=== PATIENT | male | born 1960 | race African-American/Black ===

== ENCOUNTER 2017-07-17 12:19 | Emergency (ER) | payer SELFPAY ==
[2017-07-17] MEDS ORDERED: IV NORMAL SALINE 1000ML BAG 1,000 ML IV ONE (13:30)
[2017-07-17 13:34] LABS: BASO # 0.1 x10^3/uL (0.0-0.2); BASO % 1 % (0-3); EOS % 0 % (0-3); HEMATOCRIT 42.2 % (39.0-53.0); HEMOGLOBIN 14.3 g/dL (13.0-17.5); LYMPH # 2.6 x10^3/uL (1.0-4.8); LYMPH % 32 % (24-48); MEAN CORPUSCULAR HEMOGLOBIN 29 pg (25-35); MEAN CORPUSCULAR HGB CONC 34 g/dL (31-37); MEAN CORPUSCULAR VOLUME 85 fL (79-100); MONO % 7 % (0-9); NEUT % 61 % (31-73); PLATELET COUNT 138 x10^3/uL (140-400); RED BLOOD COUNT 4.99 x10^6/uL (4.30-5.70); RED CELL DISTRIBUTION WIDTH 13.3 % (11.5-14.5); WHITE BLOOD COUNT 8.2 x10^3/uL (4.0-11.0)
--- NOTE | 2017-07-17 13:42 | EKG ---
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
[2017-07-17 13:44] LABS: PROTHROMBIN TIME PATIENT 12.4 SEC (11.7-14.0)
[2017-07-17 13:47] LABS: CALCIUM 9.9 mg/dL (8.5-10.1); CREATININE 1.2 mg/dL (0.7-1.3); GFR 75.8; POTASSIUM 4.1 mmol/L (3.5-5.1)
--- NOTE | 2017-07-17 13:49 | RAD ---
Head CT without contrast History:Weakness, headache, left leg numbness today Technique: Noncontrast CT imaging was acquired of the head. RS Compliance Statement: One or more of the following individualized dose reduction techniques were utilized for this examination: 1. Automated exposure control 2. Adjustment of the mA and/or kV according to patient size 3. Use of iterative reconstruction technique Comparison: None Findings: The ventricles, sulci, and cisterns are within normal limits in size and configuration. There is no significant mass-effect, midline shift, or abnormal extra-axial fluid collection. There is no evidence of acute parenchymal or extraaxial hemorrhage. Mastoid air cells are aerated. There is near complete opacification visualized right maxillary sinus and to moderate to severe left maxillary sinus mucosal thickening. There is also patchy ethmoid air cell mucosal thickening greater on the right. No significant osseous abnormality is identified. Impression: 1. There is no evidence of an acute intracranial abnormality. 2. There is significant paranasal sinus mucosal thickening as stated.
[2017-07-17 14:00] LABS: ALBUMIN 3.5 g/dL (3.4-5.0); ALBUMIN/GLOBULIN RATIO 0.8 (1.0-1.7); TOTAL BILIRUBIN 0.3 mg/dL (0.2-1.0); TOTAL PROTEIN 7.9 g/dL (6.4-8.2)
--- NOTE | 2017-07-17 14:20 | RAD ---
LUMBAR SPINE 2-3V History:pain, pain into the left leg Comparison: None Findings:3 views lumbar spine are submitted. Lumbar vertebral body stature and AP alignment are maintained. No acute fracture is identified by radiographs. Intervertebral disc spaces are adequate. There is atherosclerotic calcification of the abdominal aorta. Impression: 1.No acute abnormality is identified.
--- NOTE | 2017-07-17 14:22 | RAD ---
HAND RIGHT 3V History:Pain and swelling Comparison: None Findings:3 views of the right hand are submitted. There is a reflection of the fifth distal interphalangeal joint. No acute fracture or dislocation is identified. There is probable cyst of the lunate. There is some degenerative change such as of the fourth distal interphalangeal joint. Some deformity of the third metacarpal may be due to sequela of old trauma. Impression: 1.No acute osseous abnormality is identified.
--- NOTE | 2017-07-17 14:23 | RAD ---
Single view chest History:pain, shortness of breath today An AP view of the chest is submitted. Comparison: 05/25/2010. Findings: There is no significant infiltrate, pleural effusion, or pneumothorax. The pericardial cardiac silhouette is within normal limits in size. Impression: There is no evidence of acute cardiopulmonary disease.
[2017-07-17 14:28] LABS: BILIRUBIN,URINE NEGATIVE (NEG); GLUCOSE,URINE >=1000 mg/dL (NEG); NITRITE,URINE NEGATIVE (NEG); PROTEIN,URINE NEGATIVE (NEG-TRACE); UROBILINOGEN,URINE 0.2 mg/dL (0.2 mg/dL)
[2017-07-17 14:36] LABS: BACTERIA,URINE 0 /HPF (0-FEW); RBC,URINE 0 /HPF (0-2); WBC,URINE 0 /HPF (0-4)
--- NOTE | 2017-07-17 14:50 | PHYS DOC ---
Past Medical History Past Medical History: CAD, Diabetes-Type I, Hypertension Past Surgical History: No Surgical History Additional Information: ceased smoking 1 month ago Alcohol Use: None Drug Use: None Adult General Chief Complaint Chief Complaint: WEAKNESS/GENERALIZED HPI HPI Patient is a 57 year old male who presents with left leg weakness. The patient reports 2 month history of intermittent left leg pain associated with lower back pain. He reports symptoms have been more severe this week so he decided to come for evaluation. He does report some left leg weakness & has been using a cane which is unusual for him. He denies facial droop, slurred speech, upper extremity numbness/weakness. Denies any recent injury or falls. Denies fevers/chills, abdominal pain, dysuria/hematuria, saddle anesthesia, bowel/bladder incontinence/retention. No previous back surgeries. Also complains of right hand pain, previous metacarpal fracture but no recent injuries. History of diabetes & hypertension, no history of CVA or CAD. PCP is at [facility]. Review of Systems Review of Systems Constitutional: Denies fever or chills Eyes: Denies change in visual acuity HENT: Denies nasal congestion or sore throat Respiratory: Denies cough or shortness of breath Cardiovascular: Denies chest pain or edema GI: Denies abdominal pain, nausea, vomiting, or diarrhea : Denies dysuria or hematuria Musculoskeletal: Reports back pain, lower extremity pain, hand pain Integument: Denies rash or skin lesions Neurologic: Denies headache, focal weakness or sensory changes All other systems were reviewed and found to be within normal limits, except as documented in this note. Current Medications Current Medications Current Medications Medications (Trade) Dose Ordered Sig/Juan Carlos Start Time Stop Time Status Last Admin Dose Admin Sodium Chloride 1,000 ml @ 1,000 mls/hr 1X ONCE 07/17/17 13:30 07/17/17 14:29 DC 07/17/17 13:30 1,000 MLS/HR Allergies Allergies Allergies Coded Allergies Type Severity Reaction Last Updated Verified No Known Drug Allergies 07/17/17 No Physical Exam Physical Exam Constitutional: Well developed, well nourished, no acute distress, non-toxic appearance. HENT: Normocephalic, atraumatic, bilateral external ears normal, oropharynx moist, nose normal. Eyes: PERRLA, EOMI, conjunctiva normal, no discharge. Neck: supple, no stridor. Cardiovascular: RRR, no murmurs, no edema. Lungs & Thorax: LCTAB, no wheezing, no respiratory distress. Abdomen: soft, nontender, nondistended. Skin: Warm, dry, no erythema, no rash. Back: lower lumbar tenderness without step offs, otherwise no spinal tenderness , no CVA tenderness. Extremities: no focal bony tenderness of left lower extremity, no calf tenderness or swelling, distal pulses palpable bilaterally. Neurologic: Alert and oriented X 3, cranial nerves 2-12 grossly intact, essentially symmetric strength & sensation to upper & lower extremities, possibly very slightly weak with plantarflexion/dorsiflexion on the left as compared to right, normal sensation bilaterally. ambulates with steady gait. Psychologic: Affect normal, judgement normal, mood normal. Current Patient Data Vital Signs Vital Signs Date Time Temp Pulse Resp B/P (MAP) Pulse Ox O2 Delivery O2 Flow Rate FiO2 07/17/17 15:00 74 16 98 07/17/17 13:04 98.5 170/88 (115) Room Air 98.5 Lab Values Laboratory Tests Test 07/17/17 12:49 07/17/17 12:54 07/17/17 13:10 07/17/17 14:00 Glucose (Fingerstick) 364 mg/dL (70-99) H POC Troponin I 0.00 ng/ml (<0.08) White Blood Count 8.2 x10^3/uL (4.0-11.0) Red Blood Count 4.99 x10^6/uL (4.30-5.70) Hemoglobin 14.3 g/dL (13.0-17.5) Hematocrit 42.2 % (39.0-53.0) Mean Corpuscular Volume 85 fL (79-100) Mean Corpuscular Hemoglobin 29 pg (25-35) Mean Corpuscular Hemoglobin Concent 34 g/dL (31-37) Red Cell Distribution Width 13.3 % (11.5-14.5) Platelet Count 138 x10^3/uL (140-400) L Neutrophils (%) (Auto) 61 % (31-73) Lymphocytes (%) (Auto) 32 % (24-48) Monocytes (%) (Auto) 7 % (0-9) Eosinophils (%) (Auto) 0 % (0-3) Basophils (%) (Auto) 1 % (0-3) Neutrophils # (Auto) 5.0 x10^3uL (1.8-7.7) Lymphocytes # (Auto) 2.6 x10^3/uL (1.0-4.8) Monocytes # (Auto) 0.6 x10^3/uL (0.0-1.1) Eosinophils # (Auto) 0.0 x10^3/uL (0.0-0.7) Basophils # (Auto) 0.1 x10^3/uL (0.0-0.2) Prothrombin Time 12.4 SEC (11.7-14.0) Prothrombin Time INR 1.0 (0.8-1.1) PTT 31 SEC (24-38) Sodium Level 140 mmol/L (136-145) Potassium Level 4.1 mmol/L (3.5-5.1) Chloride Level 101 mmol/L (98-107) Carbon Dioxide Level 31 mmol/L (21-32) Anion Gap 8 (6-14) Blood Urea Nitrogen 19 mg/dL (8-26) Creatinine 1.2 mg/dL (0.7-1.3) Estimated GFR (Cockcroft-Gault) 75.8 BUN/Creatinine Ratio 16 (6-20) Glucose Level 352 mg/dL (70-99) H Calcium Level 9.9 mg/dL (8.5-10.1) Magnesium Level 2.0 mg/dL (1.8-2.4) Total Bilirubin 0.3 mg/dL (0.2-1.0) Aspartate Amino Transferase (AST) 16 U/L (15-37) Alanine Aminotransferase (ALT) 28 U/L (16-63) Alkaline Phosphatase 108 U/L (46-116) Troponin I Quantitative < 0.017 ng/mL (0.000-0.055) Total Protein 7.9 g/dL (6.4-8.2) Albumin 3.5 g/dL (3.4-5.0) Albumin/Globulin Ratio 0.8 (1.0-1.7) L Urine Collection Type Unknown Urine Color Colorless Urine Clarity Clear Urine pH 5.0 Urine Specific [place] >=1.030 Urine Protein Negative mg/dL (NEG-TRACE) Urine Glucose (UA) >=1000 mg/dL (NEG) Urine Ketones (Stick) Negative mg/dL (NEG) Urine Blood Negative (NEG) Urine Nitrite Negative (NEG) Urine Bilirubin Negative (NEG) Urine Urobilinogen Dipstick 0.2 mg/dL (0.2 mg/dL) Urine Leukocyte Esterase Negative (NEG) Urine RBC 0 /HPF (0-2) Urine WBC 0 /HPF (0-4) Urine Bacteria 0 /HPF (0-FEW) Urine Mucus Slight /LPF Test 07/17/17 15:06 Glucose (Fingerstick) 274 mg/dL (70-99) H Laboratory Tests 07/17/17 13:10 Laboratory Tests 07/17/17 13:10 EKG EKG interpreted by me: NSR rate 75, no acute ST/T wave changes, normal intervals, no ectopy.[] Radiology/Procedures Radiology/Procedures PROCEDURE: LUMBAR SPINE 2-3V LUMBAR SPINE 2-3V History:pain, pain into the left leg Comparison: None Findings:3 views lumbar spine are submitted. Lumbar vertebral body stature and AP alignment are maintained. No acute fracture is identified by radiographs. Intervertebral disc spaces are adequate. There is atherosclerotic calcification of the abdominal aorta. Impression: 1.No acute abnormality is identified. DICTATED and SIGNED BY: TAVARES MOSELEY MD DATE: 07/17/17 4597 PROCEDURE: CT HEAD WO CONTRAST Head CT without contrast History:Weakness, headache, left leg numbness today Technique: Noncontrast CT imaging was acquired of the head. RS Compliance Statement: One or more of the following individualized dose reduction techniques were utilized for this examination: 1. Automated exposure control 2. Adjustment of the mA and/or kV according to patient size 3. Use of iterative reconstruction technique Comparison: None Findings: The ventricles, sulci, and cisterns are within normal limits in size and configuration. There is no significant mass-effect, midline shift, or abnormal extra-axial fluid collection. There is no evidence of acute parenchymal or extraaxial hemorrhage. Mastoid air cells are aerated. There is near complete opacification visualized right maxillary sinus and to moderate to severe left maxillary sinus mucosal thickening. There is also patchy ethmoid air cell mucosal thickening greater on the right. No significant osseous abnormality is identified. Impression: 1. There is no evidence of an acute intracranial abnormality. 2. There is significant paranasal sinus mucosal thickening as stated. DICTATED and SIGNED BY: TAVARES MOSELEY MD DATE: 07/17/17 1343 PROCEDURE: HAND RIGHT 3V HAND RIGHT 3V History:Pain and swelling Comparison: None Findings:3 views of the right hand are submitted. There is a reflection of the fifth distal interphalangeal joint. No acute fracture or dislocation is identified. There is probable cyst of the lunate. There is some degenerative change such as of the fourth distal interphalangeal joint. Some deformity of the third metacarpal may be due to sequela of old trauma. Impression: 1.No acute osseous abnormality is identified. DICTATED and SIGNED BY: TAVARES MOSELEY MD DATE: 07/17/17 1416 PROCEDURE: CHEST AP ONLY Single view chest History:pain, shortness of breath today An AP view of the chest is submitted. Comparison: 05/25/2010. Findings: There is no significant infiltrate, pleural effusion, or pneumothorax. The pericardial cardiac silhouette is within normal limits in size. Impression: There is no evidence of acute cardiopulmonary disease. DICTATED and SIGNED BY: TAVARES MOSELEY MD DATE: 07/17/17 1418 [] Course & Med Decision Making Course & Med Decision Making Pertinent Labs and Imaging studies reviewed. (See chart for details) The patient presents with acute exacerbation of chronic back pain. He is a poor historian, symptoms seem most consistent with back pain with sciatica but his description of symptoms is a vague. Obtained CT of his head, x-ray of lumbar spine, and labs. He was found to have hyperglycemia but otherwise no serious abnormality to explain his symptoms. Recommend rest with gentle stretching exercises, application of heating pad, ibuprofen, Flexeril. Patient aware that blood glucose is elevated today, encouraged to take insulin as prescribed. He did miss his morning dose today. Follow-up with primary care physician within 2- 3 days. Return to the emergency department for symptoms of cauda equina syndrome , focal neurologic deficit, any otherwise worsening condition. Discharged home in stable condition. [] Dragon Disclaimer Dragon Disclaimer This electronic medical record was generated, in whole or in part, using a voice recognition dictation system. Departure Departure Impression: Primary Impression: Sciatica Additional Impression: Hyperglycemia Disposition: 01 HOME, SELF-CARE Condition: STABLE Referrals: NO PCP (PCP) CONOR CHIN MD Patient Instructions: Hyperglycemia, [id number], Sciatica, [id number] Additional Instructions: You were seen in the emergency department today for back pain & leg pain. Your tests here showed high blood sugar but otherwise no serious abnormality. This is likely lower back pain with sciatic nerve pain. Please rest but do gentle stretching exercises, apply heating pad, take ibuprofen if you are able, use flexeril for muscle spasm. Follow up with a primary care doctor such as Dr. Chin if not improving in 2-3 days. Come back for arm or leg numbness or weakness, loss of control of bowels or bladder, numbness in groin, slurred speech, droopy face, any otherwise worsening condition. Scripts Cyclobenzaprine Hcl (CYCLOBENZAPRINE HCL) 5 Mg Tablet 1 TAB PO TID Y for MUSCLE SPASMS, #10 TAB Prov: ANNELISE CHADWICK MD 07/17/17 Problem Qualifiers ANNELISE CHADWICK MD Jul 17, 2017 14:50
[2017-07-17 15:00] VITALS: BP 200/74
[2017-07-17] MEDS ORDERED: CYCL5TAB PO (15:08)
== END 2017-07-17 15:20 | disposition home or self-care (01) ==
LOC: ER 12:19
DX: E10.65 Type 1 diabetes mellitus with hyperglycemia (principal); G89.29 Other chronic pain; M54.42 Lumbago with sciatica, left side; I10 Essential (primary) hypertension; I25.10 Atherosclerotic heart disease of native coronary artery without angina pectoris; F17.200 Nicotine dependence, unspecified, uncomplicated
CPT/HCPCS: 36415; 70450; 71010; 72100; 73130; 80053; 81001; 82962; 83735; 84484; 85025; 85610; 85730; 93005; 96360; 99285; J7030

== ENCOUNTER 2017-09-21 09:45 | Emergency (ER) | payer SELFPAY, OTHER ==
[2017-09-21] MEDS: HYDROcodone/APAP 5/325MG 1 TAB TABLET PO ×2 (10:40)
== END 2017-09-21 11:45 | disposition home or self-care (01) ==
LOC: ER 11:45
DX: S30.0XXA Contusion of lower back and pelvis, initial encounter (principal); S20.222A Contusion of left back wall of thorax, initial encounter; S20.221A Contusion of right back wall of thorax, initial encounter; I25.10 Atherosclerotic heart disease of native coronary artery without angina pectoris; E11.9 Type 2 diabetes mellitus without complications; I10 Essential (primary) hypertension; W01.190A Fall on same level from slipping, tripping and stumbling with subsequent striking against furniture, initial encounter; Y93.G3 Activity, cooking and baking; Y92.89 Other specified places as the place of occurrence of the external cause; Y99.8 Other external cause status
CPT/HCPCS: 72072; 72100; 99284

== ENCOUNTER → 2017-09-21 | Outpatient (CLI) | payer OTHER ==
[2017-09-21] MEDS: ALBUTEROL SULFATE 2.5 MG/3 ML NEBU. NEB ×2 (08:55)
== END | disposition home or self-care (01) ==
LOC: PF 08:11
DX: M48.02 Spinal stenosis, cervical region (principal); I65.22 Occlusion and stenosis of left carotid artery
CPT/HCPCS: 72040; 94060; 94640; J7613

== ENCOUNTER 2018-04-07 05:08 | Emergency (ER) | payer SELFPAY ==
[~2018-04-07] VITALS: Ht 172.7 cm; Wt 78.9 kg
[~2018-04-07 05:08] MED LIST: CYCL5TAB PO
--- NOTE | 2018-04-07 05:38 | PHYS DOC ---
Past Medical History Past Medical History: CAD, Diabetes-Type II, Hypertension Past Surgical History: No Surgical History Alcohol Use: None Drug Use: None Adult General Chief Complaint Chief Complaint: EARACHE/EAR PAIN HPI HPI Patient is a pleasant 57 old male who presents to the emergency department for evaluation. He states that for the past 2-3 days, he has had some general left-sided neck and facial pain. He states he feels that the pain is in his ear, he has been taking ibuprofen which helps his pain, when the ibuprofen wears off his pain returns. He has not had any hearing changes. He has not had any definite vision changes, or any pain with ocular movement. He states swallowing does seem to worsen his pain but he is not having any sore throat. He has not had any fevers or chills. He denies any numbness or weakness. He denies any headache. Other than the stated above, there are no alleviating or exacerbating factors to his symptoms. Review of Systems Review of Systems Constitutional: Denies fever or chills [] Eyes: Denies change in visual acuity, redness, or eye pain [] HENT: Denies nasal congestion or sore throat [] Respiratory: Denies shortness of breath. He has had a nonproductive cough but he is a smoker. [] Cardiovascular: The patient denies any shortness of breath, chest pain, palpitations, or orthopnea [] GI: Denies abdominal pain, nausea, vomiting, bloody stools or diarrhea [] : Denies dysuria or hematuria [] Musculoskeletal: Denies back pain or joint pain [] Integument: Denies rash or skin lesions [] Neurologic: Denies headache, focal weakness or sensory changes [] Endocrine: Denies polyuria or polydipsia [] All other systems were reviewed and found to be within normal limits, except as documented in this note. Allergies Allergies Allergies Coded Allergies Type Severity Reaction Last Updated Verified No Known Drug Allergies 07/17/17 No Physical Exam Physical Exam PHYSICAL EXAM: CONSTITUTIONAL: Well developed, well nourished HEAD: normocephalic, atraumatic EENT: PERRL, EOMI. Conjunctivae normal color, sclerae non-icteric; moist mucous membranes. The tympanic membranes are normal bilaterally. Specifically left external auditory canal is normal, the tympanic membrane is normal. There is no tragus tenderness. There is no reproducible facial tenderness to palpation. The mastoid is nontender. NECK: Supple, no meningismus. There is mild tenderness to palpation along the anterior/lateral left neck soft tissues, along the course of the vasculature. There is a soft carotid bruit present on the left. LUNGS: Scattered rhonchi, mild,, breathing even and unlabored. Normal air movement. HEART: Regular rate and rhythm, no murmur CHEST: No deformity; non-tender ABDOMEN: The abdomen is soft, and non-tender, no masses or bruits. EXTREM: Normal ROM; no deformity, no calf tenderness. Normal pulses palpable in all extremities. There is no pedal edema. SKIN: No rash; no diaphoresis NEURO: Alert; normal speech and cognition; CN's grossly intact; strength grossly intact without focal deficit. BACK: No CVA TTP. EKG EKG [Normal sinus rhythm at a rate of 68 bpm, normal axis, normal intervals, nonspecific ST/T changes.] Radiology/Procedures Radiology/Procedures [] Course & Med Decision Making Course & Med Decision Making Pertinent Labs and Imaging studies reviewed. (See chart for details) [6:00 AM: Care will be turned over to Dr. Ellsworth at shift change, ending labs, imaging, and final disposition. Report given.] Dragon Disclaimer Dragon Disclaimer This electronic medical record was generated, in whole or in part, using a voice recognition dictation system. Departure Departure Impression: Primary Impression: Neck pain Referrals: UNKNOWN PCP NAME (PCP) ARIEL WELDON MD Apr 07, 2018 05:38
[2018-04-07 06:03] LABS: BASO # 0.1 x10^3/uL (0.0-0.2); BASO % 2 % (0-3); EOS % 1 % (0-3); HEMATOCRIT 40.3 % (39.0-53.0); HEMOGLOBIN 13.6 g/dL (13.0-17.5); LYMPH % 41 % (24-48); MEAN CORPUSCULAR HEMOGLOBIN 29 pg (25-35); MEAN CORPUSCULAR HGB CONC 34 g/dL (31-37); MEAN CORPUSCULAR VOLUME 84 fL (79-100); MONO # 0.4 x10^3/uL (0.0-1.1); MONO % 6 % (0-9); NEUT # 3.6 x10^3uL (1.8-7.7); NEUT % 51 % (31-73); PLATELET COUNT 159 x10^3/uL (140-400); RED BLOOD COUNT 4.78 x10^6/uL (4.30-5.70); RED CELL DISTRIBUTION WIDTH 14.1 % (11.5-14.5); WHITE BLOOD COUNT 7.2 x10^3/uL (4.0-11.0)
[2018-04-07 06:15] LABS: CALCIUM 8.8 mg/dL (8.5-10.1); GFR 93.5; POTASSIUM 3.2 mmol/L (3.5-5.1)
[2018-04-07 06:21] LABS: ALBUMIN 3.7 g/dL (3.4-5.0); ALBUMIN/GLOBULIN RATIO 1.1 (1.0-1.7); C-REACTIVE PROTEIN 13.8 mg/L (0-3.3); TOTAL BILIRUBIN 0.2 mg/dL (0.2-1.0); TOTAL PROTEIN 7.1 g/dL (6.4-8.2)
--- NOTE | 2018-04-07 06:22 | EKG ---
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
[2018-04-07] MEDS ORDERED: IOHEXOL 300 MG/ML 100ML VIAL. IV ONE (07:15)
[2018-04-07] MEDS ORDERED: CONTRAST GIVEN. MC PRN (07:15)
[2018-04-07] MEDS ORDERED: POTASSIUM CHLORIDE 20 MEQ/15 ML ORAL LIQUID. PO ONE (07:45)
[2018-04-07 08:05] VITALS: BP 156/73
--- NOTE | 2018-04-07 08:21 | RAD ---
CLINICAL HISTORY: left side neck pain, possible carotid injury COMPARISON: None available. TECHNIQUE: 1.0mm contiguous cuts after the administration of Omnipaque 300 75ml intravenous contrast material for CT angiography. Multiplanar reconstructed images were obtained including 3D reconstructed images performed on an independent work station. Stenosis if present in the carotid arteries were measured using NASCET criteria. FINDINGS: CTA of the intracranial circulation reveals normal appearing distal internal carotid arteries including the distal cervical, petrous, cavernous and supraclinoid portions. The anterior cerebral arteries are well visualized and without evidence of stenosis or occlusion. The middle cerebral arteries are well visualized and without evidence of stenosis or occlusion. The posterior cerebral arteries are well visualized and without evidence of stenosis or occlusion. The left posterior communicating artery is not visualized. The right posterior commuting artery is unremarkable. The vertebral basilar system is normal with no evidence of stenosis or occlusion. In the neck, the origins of the great vessels are unremarkable. Bovine configuration of the aortic arch. The common carotid arteries, bilaterally are normal with no evidence of significant stenosis or occlusion. The internal carotid arteries are normal bilaterally with no evidence of stenosis. The vertebral arteries in the neck are well visualized bilaterally and unremarkable. Emphysematous changes of the lung apices are seen. IMPRESSION: Essentially normal CT angiogram of the neck. Electronically signed by: Triston White MD (04/07/2018 8:17 AM) [facility]
[2018-04-07] MEDS ORDERED: GABA-585 PO (08:47)
--- NOTE | 2018-04-07 10:04 | RAD ---
EXAM: PA and lateral views of the chest DATE: 04/07/2018 5:32 AM INDICATION: cough COMPARISON: 07/17/2017 FINDINGS: The heart is not enlarged. Mediastinal and hilar contours are normal. No focal parenchymal airspace opacity. No pleural effusion or pneumothorax. IMPRESSION: 1. No radiographic evidence for acute cardiopulmonary process. Electronically signed by: Triston White MD (04/07/2018 10:00 AM) [facility]
== END 2018-04-07 08:55 | disposition home or self-care (01) ==
LOC: ER 05:08
DX: M54.2 Cervicalgia (principal); R51 Headache; H92.02 Otalgia, left ear; R05 Cough; F17.200 Nicotine dependence, unspecified, uncomplicated; E11.9 Type 2 diabetes mellitus without complications; I10 Essential (primary) hypertension; I25.10 Atherosclerotic heart disease of native coronary artery without angina pectoris
CPT/HCPCS: 36415; 70498; 71046; 80053; 84484; 85025; 85651; 86140; 93005; 99285; Q9967

== ENCOUNTER → 2019-06-04 | Outpatient (CLI) | payer OTHER ==
[~2019-06-04] MED LIST changes: +AMLO10TA8 PO; +ATOR40TA59 PO; +CHOL10003 PO; +GABA-585 PO; +HYDR-2761 PO; +INSU100I13 SQ; +INSU100V31 SQ; +LISI-130 PO
[2019-06-04 12:27] LABS: BILIRUBIN,URINE NEGATIVE (NEG); CLARITY,URINE CLEAR; COLOR,URINE YELLOW; NITRITE,URINE NEGATIVE (NEG); PH,URINE 5.5; PROTEIN,URINE 30 mg/dL (NEG-TRACE); UROBILINOGEN,URINE 0.2 mg/dL (0.2 mg/dL)
--- NOTE | 2019-06-04 12:40 | EKG ---
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 POOR R WAVE PROGRESSION NO SIGNIFICANT CHANGES FROM PREVIOUS EKG Electronically Signed On 06-05-2019 15:35:01 CDT by Weston Joy
[2019-06-04 12:47] LABS: BACTERIA,URINE 0 /HPF (0-FEW); RBC,URINE 0 /HPF (0-2); SQUAMOUS EPITHELIAL CELL,UR FEW /LPF; WBC,URINE 0 /HPF (0-4)
== END | disposition home or self-care (01) ==
LOC: SURGPAT 13:10
PROVIDERS: ATTEND Orthopaedic Surgery
DX: Z01.818 Encounter for other preprocedural examination (principal); M16.11 Unilateral primary osteoarthritis, right hip; I10 Essential (primary) hypertension
CPT/HCPCS: 36415; 81001; 85610; 85651; 85730; 87641; 93005

== ENCOUNTER 2019-06-19 08:07 | Inpatient (IN) | payer OTHER ==
[~2019-06-19] VITALS: Ht 172.7 cm; Wt 86.2 kg
[2019-06-19] VITALS (9 sets, daily range): BP systolic 127–167; BP diastolic 66–84
[~2019-06-19 08:07] MED LIST changes: +ACETAMINOPHEN 500 MG TABLET PO PRN; +IV RINGERS,LACTATED 1000ML 1,000 ML IV SCH; +LIDOCAINE 1% PF 2 ML VIAL. ID PRN; +MELOXICAM 7.5 MG TABLET PO PRN; +MORPHINE SULFATE 2 MG/ML VIAL. IV PRN; +MORPHINE SULFATE 5 MG, KETOROLAC 30MG VIAL 30 MG, ROPIVacaine 0.5% PF 60 ML, EPINEPHrin... INT ART ONE; +ONDANSETRON PF 4 MG/2 ML VIAL. IV PRN; +PROCHLORPERAZINE 10 MG/2 ML VIAL. IV PRN; +TRANEXAMIC ACID 1,000 MG in IV NS 50ML -- 1ST BAG INJ ONE; +TRANEXAMIC ACID 1,000 MG in IV NS 50ML -- 2ND BAG INJ ONE; +fentaNYL PF VIAL 100 MCG/2 ML VIAL IV PRN
[2019-06-19] MEDS ORDERED: fentaNYL PF VIAL 100 MCG/2 ML VIAL IV PRN (08:45)
[2019-06-19] MEDS ORDERED: 0.9 % SODIUM CHLORIDE 10 ML DISP.SYRIN. IV PRN (08:45)
[2019-06-19] MEDS ORDERED: ZOLPIDEM 5 MG TABLET. PO PRN (08:45)
[2019-06-19] MEDS ORDERED: diphenhydrAMINE 50 MG/ML VIAL IV PRN (08:45)
[2019-06-19] MEDS ORDERED: DEXTROSE 50% 25 GM / 50ML DISP.SYRIN. IV PRN (08:45)
[2019-06-19] MEDS ORDERED: MORPHINE SULFATE 2 MG/ML VIAL. IV PRN (08:45)
[2019-06-19] MEDS ORDERED: PHENYLEPHRINE in 0.9% NACL PF 1 MG/10 ML SYRINGE. IV ONE (08:52)
[2019-06-19] MEDS ORDERED: DEXAMETHASONE SOD PHOS 4 MG/ML VIAL ONE (08:52)
[2019-06-19] MEDS ORDERED: PROPOFOL 0 ML IV ONE (08:52)
[2019-06-19] MEDS ORDERED: LIDOCAINE 2% PF 5 ML VIAL. ONE (08:52)
[2019-06-19] MEDS ORDERED: fentaNYL PF VIAL 100 MCG/2 ML VIAL ONE ×3 (08:53→11:08)
[2019-06-19] MEDS ORDERED: ROCURONIUM 50 MG/5 ML VIAL. ONE ×2 (08:53→11:07)
[2019-06-19] MEDS ORDERED: MIDAZOLAM HCL/PF 2 MG/2 ML VIAL. ONE (08:53)
[2019-06-19] MEDS ORDERED: KETOROLAC 30 MG/ML VIAL. ONE (08:53)
[2019-06-19] MEDS ORDERED: CHOLECALCIFEROL (VITAMIN D3) 1,000 UNIT TABLET PO SCH (09:00)
[2019-06-19] MEDS ORDERED: amLODIPine BESYLATE 10 MG TABLET PO SCH (09:00)
--- NOTE | 2019-06-19 09:02 | HP ---
ADMIT DATE: 06/19/2019 CHIEF COMPLAINT: Left hip pain. HISTORY OF PRESENT ILLNESS: The patient is a 59-year-old male who has had ongoing severe left hip and groin pain unresponsive to nonoperative management including use of protected weightbearing, an intraarticular injection, and now significantly bothers him with startup and with increased activities, severely affecting his activities of daily living. PAST MEDICAL HISTORY: Significant for diabetes mellitus, hypertension and hyperlipidemia. FAMILY HISTORY: Denies any family history. SOCIAL HISTORY: Denies smoking or drug use. Occasional alcohol use. MEDICATIONS: Include lisinopril, amlodipine, pravastatin, Lantus, NovoLog insulin, and [place] for pain. ALLERGIES: He has no known drug allergies. REVIEW OF SYSTEMS: Denies any current chest pain, shortness of breath, fever, chills, or other constitutional symptoms. Significant for the left hip pain. Denies any neurologic weakness, extremity swelling or other symptoms. PHYSICAL EXAMINATION: VITAL SIGNS: Per admission sheet. HEENT: Atraumatic, normocephalic. HEART: Regular rate and rhythm. LUNGS: Clear to auscultation bilaterally. ABDOMEN: Benign. EXTREMITIES: Examination of the left hip reveals decreased range of motion in all planes with pain on his already decreased range of motion. Leg lengths are equal. Negative straight leg raise sign. Normal examination of the contralateral right hip, bilateral knees and ankles. IMAGING: X-rays of the left hip shows severe degenerative change with joint line narrowing, [id number] degenerative change without collapse. IMPRESSION: Right hip degenerative joint disease. TREATMENT PLAN: I had previously discussed with him in clinic risks, benefits, postoperative course of total hip arthroplasty including the possibility of instability, leg length inequality, premature wear or loosening, fracture, infection, nerve or blood vessel damage, medical or other anesthetic complications among others. He wishes to proceed with surgical evaluation and treatment today, which will include [facility] admission to follow. LYNNE PRITCHARD MD DR: PATRICK/ayesha JOB#: [id number] / [id number]
[2019-06-19] MEDS: INSULIN LISPRO 100 UNIT/ML 3ML VIAL for OP,RR ONLY. SQ PRN ×2 (09:07→12:52)
[2019-06-19 09:11] LABS: PROTHROMBIN TIME PATIENT 12.3 SEC (11.7-14.0)
[2019-06-19] MEDS ORDERED: PROPOFOL 20 ML IV ONE (10:34)
[2019-06-19] MEDS ORDERED: ESMOLOL 100 MG/10 ML VIAL. IVP ONE (11:23)
[2019-06-19] MEDS ORDERED: GLYCOPYRROLATE 1 MG/5 ML VIAL. ONE (11:38)
[2019-06-19] MEDS ORDERED: NEOSTIGMINE METHYLSULFATE 5 MG/5 ML SYRINGE. ONE (11:38)
[2019-06-19] MEDS: ONDANSETRON PF 4 MG/2 ML VIAL. IV SCH ×4 (12:00→23:55)
[2019-06-19] MEDS: ONDANSETRON ODT 4 MG TAB.RAPDIS. PO SCH ×2 (12:00→18:00)
[2019-06-19] MEDS: HYDROmorphone 2 MG/ML VIAL IV PRN ×3 (12:59→13:31)
--- NOTE | 2019-06-19 13:04 | RAD ---
HIP LEFT 2V WITH PELVIS History: Postoperative left hip arthroplasty. Technique: AP view the pelvis and 2 additional views of the left hip. Comparison: February 07, 2019. Findings: Interval left total hip arthroplasty. Expected postoperative changes with subcutaneous gas and surgical drain noted. Normal alignment. No fracture. Lucent lesion within the right femoral head, unchanged. Impression: 1. Interval left total hip arthroplasty. No immediate hardware complications. 2. 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 Electronically signed by: Misael Hernandez DO (06/19/2019 1:01 PM) [facility]
--- NOTE | 2019-06-19 13:35 | NUR ---
Arrived to unit by bed from PACU. Drowsy but awakens. Left hip dressing is intact with LYNN, IAC and Hemovac drain. Able to wiggle toes easily, warm touch and pedal pulses + bilaterally. SCD on bilaterally. IVF's intact and infusing. Oriented to room and controls. Side rails up x's 2 with call light in reach. Sponsor, Bjorn at bedside. Cont. monitor.
[2019-06-19] MEDS ORDERED: WARFARIN 7.5 MG TABLET. PO ONE (16:00)
[2019-06-19] MEDS: INSULIN LISPRO 300 UNITS/3 ML VIAL. SQ SCH ×2 (16:40→17:00)
[2019-06-19] MEDS: KETOROLAC 30MG VIAL 30 MG, BUPIVACAINE MPF 0.25% 20 ML, EPINEPHrine 0.5 MG in TOTAL VOL... INT ART SCH (16:44)
[2019-06-19] MEDS: FERROUS SULFATE 325 MG TABLET. PO SCH (16:58)
--- NOTE | 2019-06-19 19:15 | NUR ---
Elis IV @1800 not given was adm earlier@ [phone]
[2019-06-19] MEDS: IV NORMAL SALINE 1000ML BAG 1,000 ML IV SCH (19:17)
[2019-06-19] MEDS: PROCHLORPERAZINE 5 MG TABLET. PO PRN (19:17)
[2019-06-19] MEDS: oxyCODONE IR 5 MG TABLET PO PRN ×2 (19:25→23:32)
[2019-06-19] MEDS: ATORVASTATIN CALCIUM 40 MG TABLET. PO SCH (20:36)
[2019-06-19] MEDS: amLODIPine BESYLATE 10 MG TABLET PO SCH (20:38)
[2019-06-19] MEDS: INSULIN GLARGINE SYRINGE. SQ SCH (20:40)
[2019-06-19] MEDS: CALCIUM CARBONATE 500 MG TAB.CHEW PO PRN (23:32)
[2019-06-20] VITALS (12 sets, daily range): BP systolic 97–181; BP diastolic 50–84
[2019-06-20] MEDS: PROCHLORPERAZINE 5 MG TABLET. PO PRN (02:12)
[2019-06-20] MEDS: oxyCODONE IR 5 MG TABLET PO PRN ×2 (04:10→08:25)
[2019-06-20 04:38] LABS: HEMATOCRIT 34.5 % (39.0-53.0); HEMOGLOBIN 11.4 g/dL (13.0-17.5)
[2019-06-20 04:49] LABS: PROTHROMBIN TIME PATIENT 12.4 SEC (11.7-14.0)
--- NOTE | 2019-06-20 05:20 | NUR ---
paged answering service Dr Corado aerotriangulation specialist talked to Pay[place] informed that pt need medication for hicup pt having on and off hicup all night long stated will paged
[2019-06-20] MEDS: KETOROLAC 30MG VIAL 30 MG, BUPIVACAINE MPF 0.25% 20 ML, EPINEPHrine 0.5 MG in TOTAL VOL... INT ART SCH (05:30)
[2019-06-20] MEDS: ONDANSETRON PF 4 MG/2 ML VIAL. IV SCH (05:54)
[2019-06-20] MEDS: traMADol 50 MG TABLET PO SCH ×3 (05:55→17:55)
[2019-06-20] MEDS ORDERED: GABAPENTIN 100 MG CAPSULE. PO SCH (06:00)
[2019-06-20] MEDS: ONDANSETRON ODT 4 MG TAB.RAPDIS. PO SCH ×2 (06:00)
[2019-06-20] MEDS ORDERED: MAGNESIUM HYDROXIDE 2,400 MG/30 ML ORAL.SUSP. PO PRN (06:00)
--- NOTE | 2019-06-20 06:21 | NUR ---
Dr Corado returned paged informed of patient situation on having on and off hicups during the night with order to give thorazine 50mg po every 6 hours prn
[2019-06-20] MEDS ORDERED: chlorproMAZINE 25 MG TABLET PO PRN (06:30)
--- NOTE | 2019-06-20 07:33 | NUR ---
Placed on room air approximately 30 minutes, saturation level 88%, returned to oxygen at 2L/nc, eating breakfast at this time will encouragement use of incentive spirometry, deep breathing & coughing
[2019-06-20] MEDS: LISINOPRIL 20 MG TABLET PO SCH (08:24)
[2019-06-20] MEDS: FERROUS SULFATE 325 MG TABLET. PO SCH ×2 (08:25→16:26)
[2019-06-20] MEDS: CHOLECALCIFEROL (VITAMIN D3) 1,000 UNIT TABLET PO SCH (08:25)
[2019-06-20] MEDS: SENNOSIDES/DOCUSATE 8.6/50MG TABLET. PO SCH (08:25)
[2019-06-20] MEDS: ACETAMINOPHEN 500 MG TABLET PO SCH ×3 (08:25→20:45)
[2019-06-20] MEDS: MELOXICAM 7.5 MG TABLET PO SCH (08:25)
[2019-06-20] MEDS: MULTIVITAMIN with MINERAL TABLET. PO SCH (08:25)
[2019-06-20] MEDS: INSULIN LISPRO 300 UNITS/3 ML VIAL. SQ SCH ×6 (08:31→16:32)
[2019-06-20] MEDS: IV NORMAL SALINE 1000ML BAG 1,000 ML IV SCH (08:31)
--- NOTE | 2019-06-20 08:54 | NUR ---
Performed incentive spirometry pulled up to 2000ml, encouraged every hour while awake, 94-95% on room air. Given Thorazine for recurrent hiccups.
--- NOTE | 2019-06-20 10:25 | NUR ---
Pharmacy Warfarin Dosing Note S:Pharmacy consulted to assist with anticoagulation therapy started 06/19/19 with target INR: 1.6 - 2.5 O:ARTURMANDIE is a 59 year old M s/p DANA. LABS: Last INR: 1 Last HGB: 11.4 Last HCT: 34.5 Last PLT: - Last dose of 7.5 mg given on 06/19/19 at 1917 Previous Regimen: NA Vitamin K given: N Drug Interaction Changes: Same Interacting Drug Ongoing Drug Interactions: Atorvastatin, chlorpromazine, meloxicam A:INR of 1 is below desired range. Target range for this patient is: 1.6 - 2.5 P: Warfarin dose: 5 mg Today at 1600 Bridge Therapy: None Next INR due 06/21/19 Pharmacy anticoagulation service will continue to follow. DAKSHA HUTCHINS [facility], 06/20/19 [id number]
--- NOTE | 2019-06-20 11:43 | NUR ---
C/o being dizzy during therapy session, BP 99/64, FSBS 137, cool compress to head, returned back to room, vital signs retaken 114/65, 82, will continue to observe, called for different meal tray, up in bedside chair with feet elevated, ice pack to left hip, call light within reach
[2019-06-20] MEDS ORDERED: ONDANSETRON ODT 4 MG TAB.RAPDIS. PO PRN (12:00)
[2019-06-20] MEDS ORDERED: ONDANSETRON PF 4 MG/2 ML VIAL. IV PRN (12:00)
[2019-06-20] MEDS: CALCIUM CARBONATE 500 MG TAB.CHEW PO PRN (12:11)
[2019-06-20] MEDS: PANTOPRAZOLE 40 MG TABLET.DR. PO SCH (12:42)
--- NOTE | 2019-06-20 14:18 | NUR ---
Another episode of dizziness BP 97/50 HR 78, legs elevated, returned to room, vital signs improved to 112/65-87, taking liquids & voiding well, call light in reach, family friend at bedside, will continue to observe
--- NOTE | 2019-06-20 15:00 | PDOC ---
PROGRESS NOTES Subjective Subjective Problems overnight: Getting around well with physical therapy pain control is adequate Objective Vital Signs Vital Signs Date Time Temp Pulse Resp B/P (MAP) Pulse Ox O2 Delivery O2 Flow Rate FiO2 06/20/19 14:40 85 131/73 (92) 06/20/19 14:18 91 Room Air 06/20/19 07:49 2.0 06/20/19 07:02 99.6 20 99.6 Physical Exam Leg lengths equal distal neurovascular status intact Labs Laboratory Tests Test 06/19/19 08:30 06/19/19 08:48 06/19/19 12:27 06/19/19 16:30 Prothrombin Time 12.3 SEC (11.7-14.0) Prothromb Time International Ratio 0.9 (0.8-1.1) Activated Partial Thromboplast Time 26 SEC (24-38) Glucose (Fingerstick) 163 mg/dL (70-99) 117 mg/dL (70-99) 204 mg/dL (70-99) Test 06/19/19 20:25 06/20/19 04:15 06/20/19 06:59 06/20/19 11:29 Glucose (Fingerstick) 184 mg/dL (70-99) 198 mg/dL (70-99) 137 mg/dL (70-99) Hemoglobin 11.4 g/dL (13.0-17.5) Hematocrit 34.5 % (39.0-53.0) Mean Corpuscular Hemoglobin Concent 33 g/dL (31-37) Prothrombin Time 12.4 SEC (11.7-14.0) Prothromb Time International Ratio 1.0 (0.8-1.1) Laboratory Tests Test 06/19/19 16:30 06/19/19 20:25 06/20/19 04:15 06/20/19 06:59 Glucose (Fingerstick) 204 mg/dL (70-99) 184 mg/dL (70-99) 198 mg/dL (70-99) Hemoglobin 11.4 g/dL (13.0-17.5) Hematocrit 34.5 % (39.0-53.0) Mean Corpuscular Hemoglobin Concent 33 g/dL (31-37) Prothrombin Time 12.4 SEC (11.7-14.0) Prothromb Time International Ratio 1.0 (0.8-1.1) Test 06/20/19 11:29 Glucose (Fingerstick) 137 mg/dL (70-99) Imaging Postoperative x-rays show excellent alignment offset leg length and component placement status post total hip arthroplasty Assessment Assessment POD# 1 left total hip Plan Plan of Care Weightbearing as tolerated standard total hip precautions Coumadin anticoagulation Placement, patient apparently prefers rehabilitation stay due to his living arrangements LYNNE PRITCHARD MD Jun 20, 2019 15:00
[2019-06-20] MEDS ORDERED: BISACODYL 10 MG SUPP.RECT. PR PRN (16:00)
[2019-06-20] MEDS ORDERED: WARFARIN 5 MG TABLET. PO ONE (16:00)
--- NOTE | 2019-06-20 16:10 | NUR ---
Hemovac & IAC discontinued per order, both sites cleansed with Chloraprep & Aquacel Foam placed over insertion sites, minimal drainage noted. In bed with HOB elevated, visitors at bedside call light in reach, side rails up x 2
[2019-06-20] MEDS: ATORVASTATIN CALCIUM 40 MG TABLET. PO SCH (20:45)
[2019-06-20] MEDS: INSULIN GLARGINE SYRINGE. SQ SCH (20:52)
[2019-06-20] MEDS: amLODIPine BESYLATE 10 MG TABLET PO SCH (20:52)
--- NOTE | 2019-06-20 21:39 | NUR ---
Temp 100.1. IS encouraged, demonstrated 1500-2000cc. Patient appears drowsy. Patient states "slept all day." Left hip dressing D/I. LYNN's orange light is blinking but appears intact. Assisted to toilet, ambulates w/ SBA w/o difficulty.
[2019-06-21] MEDS: ACETAMINOPHEN 500 MG TABLET PO SCH ×4 (03:13→21:44)
[2019-06-21 04:29] LABS: HEMATOCRIT 27.1 % (39.0-53.0); HEMOGLOBIN 9.2 g/dL (13.0-17.5)
[2019-06-21 04:34] LABS: PROTHROMBIN TIME PATIENT 17.4 SEC (11.7-14.0)
[2019-06-21] MEDS: traMADol 50 MG TABLET PO SCH ×4 (06:00→17:03)
[2019-06-21] MEDS: PANTOPRAZOLE 40 MG TABLET.DR. PO SCH (06:00)
[2019-06-21 06:19] VITALS: BP 123/68
--- NOTE | 2019-06-21 06:24 | NUR ---
Slept well. Rating pain 01/29. VSS. FSBS 141.
[2019-06-21] MEDS: FERROUS SULFATE 325 MG TABLET. PO SCH ×2 (07:48→15:34)
[2019-06-21] MEDS: oxyCODONE IR 5 MG TABLET PO PRN ×4 (07:48→20:16)
[2019-06-21] MEDS: INSULIN LISPRO 300 UNITS/3 ML VIAL. SQ SCH ×6 (07:50→17:15)
[2019-06-21 08:15] VITALS: BP 121/67
[2019-06-21] MEDS ORDERED: SODIUM CHLORIDE 0.65% NASAL SPRAY 45ML BOTTLE. NS PRN (08:30)
[2019-06-21] MEDS: LISINOPRIL 20 MG TABLET PO SCH (09:00)
[2019-06-21] MEDS: CHOLECALCIFEROL (VITAMIN D3) 1,000 UNIT TABLET PO SCH (09:14)
[2019-06-21] MEDS: MELOXICAM 7.5 MG TABLET PO SCH (09:15)
[2019-06-21] MEDS: SENNOSIDES/DOCUSATE 8.6/50MG TABLET. PO SCH (09:15)
[2019-06-21] MEDS: MULTIVITAMIN with MINERAL TABLET. PO SCH (09:15)
[2019-06-21 09:20] VITALS: BP 103/65
--- NOTE | 2019-06-21 11:58 | NUR ---
Scheduled Ultram held, Oxycodone 5mg given instead
--- NOTE | 2019-06-21 13:56 | NUR ---
Pharmacy Warfarin Dosing Note S: Pharmacy consulted to assist with anticoagulation therapy started 06/19/19 O: ARTURMANDIE is a 59 year old M with Right total hip LABS: Last INR: 1.5 Last HGB: 9.2 Last HCT: 27.1 Last PLT: - Last dose of 5 mg given on 06/20/19 at 1626 Vitamin K given: N Ongoing Drug Interactions: Atorvastatin, chlorpromazine, meloxicam A:INR of 1.5 is below desired range. Target range for this patient is: 1.6 - 2.5 P: Warfarin dose: 2 mg Today at 1600 Bridge Therapy: None Next INR due tomorrow Pharmacy anticoagulation service will continue to follow. Mahnaz Cuevas RPH, 06/21/19 3830
[2019-06-21] MEDS ORDERED: WARFARIN 2 MG TABLET. PO ONE (16:00)
--- NOTE | 2019-06-21 16:13 | PDOC ---
PROGRESS NOTES Subjective Subjective Problems overnight: Getting around much better today with physical therapy less groin pain but does have muscular soreness Objective Vital Signs Vital Signs Date Time Temp Pulse Resp B/P (MAP) Pulse Ox O2 Delivery O2 Flow Rate FiO2 06/21/19 15:35 Room Air 06/21/19 09:20 96 103/65 (78) 06/21/19 06:19 98.6 16 94 98.6 06/20/19 07:49 2.0 Physical Exam Leg lengths equal radha dressing intact distal to neurovascular status intact Labs Laboratory Tests Test 06/19/19 16:30 06/19/19 20:25 06/20/19 04:15 06/20/19 06:59 Glucose (Fingerstick) 204 mg/dL (70-99) 184 mg/dL (70-99) 198 mg/dL (70-99) Hemoglobin 11.4 g/dL (13.0-17.5) Hematocrit 34.5 % (39.0-53.0) Mean Corpuscular Hemoglobin Concent 33 g/dL (31-37) Prothrombin Time 12.4 SEC (11.7-14.0) Prothromb Time International Ratio 1.0 (0.8-1.1) Test 06/20/19 11:29 06/20/19 16:23 06/20/19 20:40 06/21/19 03:50 Glucose (Fingerstick) 137 mg/dL (70-99) 327 mg/dL (70-99) 242 mg/dL (70-99) Hemoglobin 9.2 g/dL (13.0-17.5) Hematocrit 27.1 % (39.0-53.0) Mean Corpuscular Hemoglobin Concent 34 g/dL (31-37) Prothrombin Time 17.4 SEC (11.7-14.0) Prothromb Time International Ratio 1.5 (0.8-1.1) Test 06/21/19 06:05 06/21/19 11:12 Glucose (Fingerstick) 141 mg/dL (70-99) 95 mg/dL (70-99) Laboratory Tests Test 06/20/19 16:23 06/20/19 20:40 06/21/19 03:50 06/21/19 06:05 Glucose (Fingerstick) 327 mg/dL (70-99) 242 mg/dL (70-99) 141 mg/dL (70-99) Hemoglobin 9.2 g/dL (13.0-17.5) Hematocrit 27.1 % (39.0-53.0) Mean Corpuscular Hemoglobin Concent 34 g/dL (31-37) Prothrombin Time 17.4 SEC (11.7-14.0) Prothromb Time International Ratio 1.5 (0.8-1.1) Test 06/21/19 11:12 Glucose (Fingerstick) 95 mg/dL (70-99) Assessment Assessment POD# 2 left total hip arthroplasty Plan Plan of Care Getting around better weightbearing as tolerated standard total hip precautions Coumadin anticoagulation Expect placement tomorrow at [facility] rehabilitation LYNNE PRITCHARD MD Jun 21, 2019 16:13
[2019-06-21] MEDS ORDERED: MAGNESIUM HYDROXIDE 2,400 MG/30 ML ORAL.SUSP. PO PRN (16:15)
[2019-06-21] MEDS: BISACODYL 5 MG TABLET.DR. PO SCH (17:03)
[2019-06-21 17:55] VITALS: BP 129/66
--- NOTE | 2019-06-21 18:06 | PATHOLOGY ---
[facility] Accession Number: [id number] . 01 Material submitted: . hip - LEFT FEMORAL HEAD. Modifiers: left . 01 Clinical history: . Osteoarthritis hips . 02 Diagnosis: Femoral head, left total hip arthroplasty: - Degenerative arthritis. (JPM:spencer; 06/21/2019) QMS 06/21/2019 0851 Local . 02 Electronically signed: . Silvio Luis MD, Pathologist NPI- [id number] . 01 Gross description: . Received in formalin labeled "David Montoya, femoral head (left)," is a femoral head with attached femoral neck measuring 4.8 x 4.8 x 5.2 cm in greatest dimensions. The articular surface is smooth to granular and pale galindo to dark brown in appearance, displaying no gross evidence of eburnation. The bone margin is flat, granular and galindo-brown in appearance. Serial sectioning reveals pale yellow-galindo to pink-galindo cut surfaces, with focal dark red-brown hemorrhage noted at the bone margin. No cysts or nodules are identified grossly. [employer] articular surface and hemorrhagic marrow are submitted in cassette A1, following decalcification. (DAC; 06/20/2019) XDC/XDC 06/21/2019 0850 Local . 02 Pathologist provided ICD-10: M16.12 . 02 CPT . 295242, [id number] Specimen Comment: A courtesy copy of this report has been sent to [phone] Specimen Comment: Report sent to Performed at: 01 [facility] [address], [place] [id number] MD Winston Olmedo MD Phone: [phone] Performed at: 02 [facility] [address] [place], [place] [id number] MD Silvio Luis MD Phone: [phone]
[2019-06-21 19:20] VITALS: BP 166/79
[2019-06-21] MEDS: amLODIPine BESYLATE 10 MG TABLET PO SCH (21:43)
[2019-06-21] MEDS: ATORVASTATIN CALCIUM 40 MG TABLET. PO SCH (21:43)
[2019-06-21] MEDS: INSULIN GLARGINE SYRINGE. SQ SCH (21:49)
[2019-06-21 23:42] VITALS: BP 158/79
[2019-06-22] MEDS: traMADol 50 MG TABLET PO SCH ×4 (00:16→18:00)
--- NOTE | 2019-06-22 00:52 | CONS ---
DATE OF CONSULTATION: 06/21/2019 ATTENDING PHYSICIAN: Dr. Hendrix. REASON FOR CONSULTATION: The patient was seen at the request of Dr. Hendrix for rehab evaluation. HISTORY OF PRESENT ILLNESS: This is a 59-year-old right-handed male with chronic left hip pain from degenerative joint disease and also chronic lower back pain without any clinical evidence of ongoing lumbar radiculopathy. 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 The patient is not known allergic to any medication. He lives with 2 other male friends in a [place], [place] home, had 4 steps with railing to enter the house plus basement and he has been independent with his mobility and self-care skills prior to the present hospitalization, though has to use a cane to walk. He had gone through intraarticular injections and medication without any significant help, so he underwent left total hip arthroplasty done on 06/19/2019. Postop, he complains of some pain and he has been participating in physical therapy. The patient admits some constipation. He denies any difficulty with urination. The patient was found with anemia. PHYSICAL EXAMINATION: On physical examination today revealed a middle-aged male. He is alert, oriented to time, place, person and circumstance and follows commands appropriately, moves all 4 extremities voluntarily where he had 4+/5 grade muscle strength and deep tendon reflexes are brisk bilaterally. He had equal perception of touch and pinprick sensation bilaterally. He had some pain on range of motion of left hip and lumbar spine and tenderness to palpation over lumbar paraspinal muscles extending over to sacroiliac joint area and straight leg raising test is negative bilaterally. He had dressing to his left hip area, tenderness to palpation over left hip area. He is requiring some help with bed mobility and transfers. Once up, he can walk using a roller walker. He gets tired easily. He had painful range of motion of right hip joint. He had crepitus on range of motion of knee joints without any knee joint effusion. ASSESSMENT: 1. Middle-aged male with painful degenerative joint disease of left hip, status post left total hip arthroplasty done on 06/19/2019 with postoperative pain. 2. Chronic lower back pain from degenerative disk disease and degenerative joint disease of lumbar vertebrae without any clinical evidence of ongoing lumbar radiculopathy, degenerative joint disease of both knees without much pain. The patient is with known diabetes mellitus, hypertension, hyperlipidemia, anemia. RECOMMENDATION: Agree with the plan for physical therapy and occupational therapy to ask for a screen for transfer to inpatient rehab program for a short period to help improve his functional mobility and self-care skills as he is by himself when his friends go to work. Dr. Hendrix, I appreciate asking me to participate in the care of this interesting patient. I will be glad to follow him with you as needed for the rehabilitation. LUX AMARAL MD DR: YANNA/ayesha JOB#: [id number] / [id number]
[2019-06-22] MEDS: oxyCODONE IR 5 MG TABLET PO PRN ×5 (01:20→21:42)
[2019-06-22] MEDS: ACETAMINOPHEN 500 MG TABLET PO SCH ×4 (03:00→21:41)
[2019-06-22 03:44] VITALS: BP 142/74
[2019-06-22 06:42] LABS: BASO % 0 % (0-3); EOS % 0 % (0-3); HEMATOCRIT 27.6 % (39.0-53.0); HEMOGLOBIN 9.1 g/dL (13.0-17.5); LYMPH # 2.9 x10^3/uL (1.0-4.8); LYMPH % 37 % (24-48); MEAN CORPUSCULAR HEMOGLOBIN 26 pg (25-35); MEAN CORPUSCULAR HGB CONC 33 g/dL (31-37); MEAN CORPUSCULAR VOLUME 80 fL (79-100); MONO # 0.6 x10^3/uL (0.0-1.1); MONO % 7 % (0-9); NEUT # 4.2 x10^3/uL (1.8-7.7); NEUT % 55 % (31-73); PLATELET COUNT 142 x10^3/uL (140-400); RED BLOOD COUNT 3.46 x10^6/uL (4.30-5.70); RED CELL DISTRIBUTION WIDTH 14.8 % (11.5-14.5); WHITE BLOOD COUNT 7.7 x10^3/uL (4.0-11.0)
[2019-06-22 06:51] LABS: PROTHROMBIN TIME PATIENT 16.2 SEC (11.7-14.0)
[2019-06-22 07:00] VITALS: BP 166/72
[2019-06-22 07:00] LABS: CALCIUM 8.5 mg/dL (8.5-10.1); CREATININE 1.2 mg/dL (0.7-1.3); GFR 75.2; POTASSIUM 3.5 mmol/L (3.5-5.1)
[2019-06-22] MEDS: INSULIN LISPRO 300 UNITS/3 ML VIAL. SQ SCH ×6 (08:00→17:19)
[2019-06-22] MEDS: FERROUS SULFATE 325 MG TABLET. PO SCH ×2 (08:05→17:09)
[2019-06-22] MEDS: MULTIVITAMIN with MINERAL TABLET. PO SCH (08:05)
[2019-06-22] MEDS: SENNOSIDES/DOCUSATE 8.6/50MG TABLET. PO SCH (08:06)
[2019-06-22] MEDS: MELOXICAM 7.5 MG TABLET PO SCH (08:06)
[2019-06-22] MEDS: CHOLECALCIFEROL (VITAMIN D3) 1,000 UNIT TABLET PO SCH (08:06)
[2019-06-22] MEDS: PANTOPRAZOLE 40 MG TABLET.DR. PO SCH (08:06)
[2019-06-22] MEDS: LISINOPRIL 20 MG TABLET PO SCH (08:17)
[2019-06-22] MEDS: BISACODYL 5 MG TABLET.DR. PO SCH ×2 (08:19→15:17)
--- NOTE | 2019-06-22 11:09 | NUR ---
SS following up with discharge planning. SS reviewed pt chart. Pt is from home and is currently on room air. Pt accepted at [facility], [place], ; fax [phone], pending insurance authorization. landscape architect and planner, Kenna Blas, following. landscape architect and planner Kenna Blas contacted case sealer, Jasper, at [facility] for update and was notified that authorization was still pending at this time for [facility]. SS will continue to follow for discharge planning.
--- NOTE | 2019-06-22 11:22 | PDOC ---
PROGRESS NOTES Subjective Subjective He admits soreness in his hip area. Objective Objective Vital Signs Date Time Temp Pulse Resp B/P (MAP) Pulse Ox O2 Delivery O2 Flow Rate FiO2 06/22/19 08:17 96 158/73 06/22/19 07:55 Room Air 06/22/19 07:00 99.1 18 93 99.1 06/21/19 21:15 2.0 Intake and Output 06/22/19 07:00 Intake Total 960 ml Output Total 300 ml Balance 660 ml Intake Oral 960 ml Output Urine Total 300 ml # Voids 2 Physical Exam Physical Exam He is alert,siting in bedside chair and he is walking with physical therapy using roller walker. Plan Plan of Care To continue physical and occupational therapy follow up while waiting for rehab unit transfer. He needs to work on stairs climbing before discharge to home. Comment Review of Relevant I have reviewed the following items paris (where applicable) has been applied. Labs Laboratory Tests Test 06/20/19 11:29 06/20/19 16:23 06/20/19 20:40 06/21/19 03:50 Glucose (Fingerstick) 137 mg/dL (70-99) 327 mg/dL (70-99) 242 mg/dL (70-99) Hemoglobin 9.2 g/dL (13.0-17.5) Hematocrit 27.1 % (39.0-53.0) Mean Corpuscular Hemoglobin Concent 34 g/dL (31-37) Prothrombin Time 17.4 SEC (11.7-14.0) Prothromb Time International Ratio 1.5 (0.8-1.1) Test 06/21/19 06:05 06/21/19 11:12 06/21/19 16:12 06/21/19 21:16 Glucose (Fingerstick) 141 mg/dL (70-99) 95 mg/dL (70-99) 190 mg/dL (70-99) 176 mg/dL (70-99) Test 06/22/19 05:20 06/22/19 07:33 White Blood Count 7.7 x10^3/uL (4.0-11.0) Red Blood Count 3.46 x10^6/uL (4.30-5.70) Hemoglobin 9.1 g/dL (13.0-17.5) Hematocrit 27.6 % (39.0-53.0) Mean Corpuscular Volume 80 fL (79-100) Mean Corpuscular Hemoglobin 26 pg (25-35) Mean Corpuscular Hemoglobin Concent 33 g/dL (31-37) Red Cell Distribution Width 14.8 % (11.5-14.5) Platelet Count 142 x10^3/uL (140-400) Neutrophils (%) (Auto) 55 % (31-73) Lymphocytes (%) (Auto) 37 % (24-48) Monocytes (%) (Auto) 7 % (0-9) Eosinophils (%) (Auto) 0 % (0-3) Basophils (%) (Auto) 0 % (0-3) Neutrophils # (Auto) 4.2 x10^3/uL (1.8-7.7) Lymphocytes # (Auto) 2.9 x10^3/uL (1.0-4.8) Monocytes # (Auto) 0.6 x10^3/uL (0.0-1.1) Eosinophils # (Auto) 0.0 x10^3/uL (0.0-0.7) Basophils # (Auto) 0.0 x10^3/uL (0.0-0.2) Prothrombin Time 16.2 SEC (11.7-14.0) Prothromb Time International Ratio 1.3 (0.8-1.1) Sodium Level 143 mmol/L (136-145) Potassium Level 3.5 mmol/L (3.5-5.1) Chloride Level 108 mmol/L (98-107) Carbon Dioxide Level 28 mmol/L (21-32) Anion Gap 7 (6-14) Blood Urea Nitrogen 23 mg/dL (8-26) Creatinine 1.2 mg/dL (0.7-1.3) Estimated GFR (Cockcroft-Gault) 75.2 Glucose Level 115 mg/dL (70-99) Calcium Level 8.5 mg/dL (8.5-10.1) Glucose (Fingerstick) 102 mg/dL (70-99) Laboratory Tests Test 06/21/19 16:12 06/21/19 21:16 06/22/19 05:20 06/22/19 07:33 Glucose (Fingerstick) 190 mg/dL (70-99) 176 mg/dL (70-99) 102 mg/dL (70-99) White Blood Count 7.7 x10^3/uL (4.0-11.0) Red Blood Count 3.46 x10^6/uL (4.30-5.70) Hemoglobin 9.1 g/dL (13.0-17.5) Hematocrit 27.6 % (39.0-53.0) Mean Corpuscular Volume 80 fL (79-100) Mean Corpuscular Hemoglobin 26 pg (25-35) Mean Corpuscular Hemoglobin Concent 33 g/dL (31-37) Red Cell Distribution Width 14.8 % (11.5-14.5) Platelet Count 142 x10^3/uL (140-400) Neutrophils (%) (Auto) 55 % (31-73) Lymphocytes (%) (Auto) 37 % (24-48) Monocytes (%) (Auto) 7 % (0-9) Eosinophils (%) (Auto) 0 % (0-3) Basophils (%) (Auto) 0 % (0-3) Neutrophils # (Auto) 4.2 x10^3/uL (1.8-7.7) Lymphocytes # (Auto) 2.9 x10^3/uL (1.0-4.8) Monocytes # (Auto) 0.6 x10^3/uL (0.0-1.1) Eosinophils # (Auto) 0.0 x10^3/uL (0.0-0.7) Basophils # (Auto) 0.0 x10^3/uL (0.0-0.2) Prothrombin Time 16.2 SEC (11.7-14.0) Prothromb Time International Ratio 1.3 (0.8-1.1) Sodium Level 143 mmol/L (136-145) Potassium Level 3.5 mmol/L (3.5-5.1) Chloride Level 108 mmol/L (98-107) Carbon Dioxide Level 28 mmol/L (21-32) Anion Gap 7 (6-14) Blood Urea Nitrogen 23 mg/dL (8-26) Creatinine 1.2 mg/dL (0.7-1.3) Estimated GFR (Cockcroft-Gault) 75.2 Glucose Level 115 mg/dL (70-99) Calcium Level 8.5 mg/dL (8.5-10.1) Medications Current Medications Morphine Sulfate 5 mg/Ketorolac Tromethamine 30 mg/Ropivacaine 60 ml/Epinephrine HCl 0.5 mg/Sodium Chloride 100 ml @ 100 mls/hr 1X ONCE INT ART Last administered on 06/19/19at 11:03; Start 06/19/19 at 06:00; Stop 06/19/19 at 06:59; Status DC Meloxicam (Mobic) 15 mg 1X PREOP PRN PO PRIOR TO PROCEDURE; Start 06/19/19 at 06:00; Stop 06/19/19 at 18:00; Status DC Acetaminophen (Tylenol) 1,000 mg 1X PREOP PRN PO PRIOR TO PROCEDURE Last administered on 06/19/19at 09:06; Start 06/19/19 at 06:00; Stop 06/19/19 at 13:59; Status DC Cefazolin Sodium/ Dextrose 50 ml @ 100 mls/hr 1X PREOP PRN IV PRIOR TO PROCEDURE; Start 06/19/19 at 06:00; Stop 06/19/19 at 18:00; Status DC Tranexamic Acid 1000 mg/Sodium Chloride 60 ml @ 60 mls/hr 1X PERIOP ONCE INJ Last administered on 06/19/19at 10:30; Start 06/19/19 at 06:00; Stop 06/19/19 at 06:59; Status DC Tranexamic Acid 1000 mg/Sodium Chloride 60 ml @ 60 mls/hr 1X PERIOP ONCE INJ Last administered on 06/19/19at 11:40; Start 06/19/19 at 08:00; Stop 06/19/19 at 08:59; Status DC Ondansetron HCl (Zofran) 4 mg PRN Q6HRS PRN IV NAUSEA/VOMITING; Start 06/19/19 at 06:45; Stop 06/20/19 at 06:44; Status DC Fentanyl Citrate (Fentanyl 2ml Vial) 25 mcg PRN Q5MIN PRN IV MILD PAIN 1-3; Start 06/19/19 at 06:45; Stop 06/20/19 at 06:44; Status DC Fentanyl Citrate (Fentanyl 2ml Vial) 50 mcg PRN Q5MIN PRN IV MODERATE TO SEVERE PAIN; Start 06/19/19 at 06:45; Stop 06/20/19 at 06:44; Status DC Morphine Sulfate (Morphine Sulfate) 1 mg PRN Q10MIN PRN IV SEVERE PAIN 7-10; Start 06/19/19 at 06:45; Stop 06/20/19 at 06:44; Status DC Ringer's Solution 1,000 ml @ 30 mls/hr Q24H IV Last administered on 06/19/19at 06:34; Start 06/19/19 at 06:34; Stop 06/19/19 at 18:33; Status DC Lidocaine HCl (Xylocaine-Mpf 1% 2ml Vial) 2 ml 1X PRN PRN ID IV START; Start 06/19/19 at 06:45; Stop 06/20/19 at 06:44; Status DC Hydromorphone HCl (Dilaudid) 0.5 mg PRN Q10MIN PRN IV SEV PAIN, Second choice Last administered on 06/19/19at 13:31; Start 06/19/19 at 06:45; Stop 06/20/19 at 06:44; Status DC Prochlorperazine Edisylate (Compazine) 5 mg PACU PRN PRN IV NAUSEA, MRX1; Start 06/19/19 at 06:45; Stop 06/20/19 at 06:44; Status DC Morphine Sulfate (Morphine Sulfate) 2 mg PRN Q1HR PRN IV PAIN; Start 06/19/19 at 08:45 Fentanyl Citrate (Fentanyl 2ml Vial) 25 mcg PRN Q1HR PRN IV PAIN, 2nd CHOICE; Start 06/19/19 at 08:45 Diphenhydramine HCl (Benadryl) 25 mg PRN Q6HRS PRN IV ITCHING; Start 06/19/19 at 08:45 Warfarin Sodium (Coumadin) 7.5 mg 1X ONCE PO Last administered on 06/19/19at 19:17; Start 06/19/19 at 16:00; Stop 06/19/19 at 16:01; Status DC Warfarin Sodium (Coumadin Per Pharmacy) 1 each PRN DAILY PRN MC SEE COMMENTS Last administered on 06/21/19at 13:50; Start 06/19/19 at 08:45 Multivitamins (Thera M Plus) 1 tab DAILY PO Last administered on 06/22/19at 08:05; Start 06/20/19 at 09:00 Senna/Docusate Sodium (Senna Plus) 1 tab DAILY PO Last administered on 06/22/19at 08:06; Start 06/20/19 at 09:00 Ferrous Sulfate (Feosol) 325 mg BIDWMEALS PO Last administered on 06/22/19at 08:05; Start 06/19/19 at 17:00 Sodium Chloride 1,000 ml @ 40 mls/hr Q24H IV Last administered on 06/19/19at 19:17; Start 06/19/19 at 08:37; Stop 06/20/19 at 08:44; Status DC Prochlorperazine Maleate (Compazine) 10 mg PRN Q4HRS PRN PO Nausea/vomiting, 2nd choice Last administered on 06/20/19at 02:12; Start 06/19/19 at 08:45 Magnesium Hydroxide (Milk Of Magnesia) 2,400 mg 1X PRN PRN PO CONSTIPATION; Start 06/20/19 at 06:00; Stop 06/21/19 at 05:59; Status DC Bisacodyl (Dulcolax Supp) 10 mg 1X PRN PRN DC CONSTIPATION; Start 06/20/19 at 16:00; Stop 06/21/19 at 15:59; Status DC Zolpidem Tartrate (Ambien) 5 mg PRN QHS PRN PO INSOMNIA, MAY REPEAT IN 1HR Last administered on 06/19/19at 23:51; Start 06/19/19 at 08:45 Calcium Carbonate/ Glycine (Tums) 500 mg PRN QID PRN PO INDIGESTION Last administered on 06/20/19at 12:11; Start 06/19/19 at 08:45 Ketorolac Tromethamine 30 mg/Bupivacaine HCl 20 ml/ Epinephrine HCl 0.5 mg/ Miscellaneous 43 ml @ 258 mls/hr Q12H INT ART Last administered on 06/20/19at 05:30; Start 06/19/19 at 18:00; Stop 06/20/19 at 06:09; Status DC Sodium Chloride (Normal Saline Flush) 10 ml QSHIFT PRN IV AFTER MEDS AND BLOOD DRAWS; Start 06/19/19 at 08:45 Acetaminophen (Tylenol) 1,000 mg Q6H PO Last administered on 06/22/19at 08:06; Start 06/20/19 at 09:00 Meloxicam (Mobic) 15 mg DAILY PO Last administered on 06/22/19at 08:06; Start 06/20/19 at 09:00 Tramadol HCl (Ultram) 50 mg Q6H PO Last administered on 06/22/19at 00:16; Start 06/20/19 at 06:00 Gabapentin (Neurontin) 100 mg Q8HRS PO ; Start 06/20/19 at 06:00; Stop 06/19/19 at 11:24; Status DC Ondansetron HCl (Zofran) 4 mg Q6HRS IV Last administered on 06/20/19at 05:54; Start 06/19/19 at 12:00; Stop 06/20/19 at 06:01; Status DC Ondansetron HCl (Zofran Odt) 4 mg Q6HRS PO ; Start 06/19/19 at 12:00; Stop 06/20/19 at 06:01; Status DC Ondansetron HCl (Zofran) 4 mg PRN Q6HRS PRN IV Nausea/vomiting, 1st choice; Start 06/20/19 at 12:00 Ondansetron HCl (Zofran Odt) 4 mg PRN Q6HRS PRN PO Nausea/vomiting, 1st choice; Start 06/20/19 at 12:00 Oxycodone HCl (Roxicodone) 5 mg PRN Q4HRS PRN PO Pain score 4-6 Last administered on 06/22/19at 06:25; Start 06/19/19 at 08:45 Insulin Human Lispro (HumaLOG) 0-7 UNITS TIDWMEALS SQ Last administered on 06/21/19at 17:09; Start 06/19/19 at 17:00 Dextrose (Dextrose 50%-Water Syringe) 12.5 gm PRN Q15MIN PRN IV SEE COMMENTS; Start 06/19/19 at 08:45 Cefazolin Sodium/ Dextrose 50 ml @ 100 mls/hr Q6H IV Last administered on 06/19/19at 10:15; Start 06/19/19 at 08:45; Stop 06/19/19 at 13:53; Status DC Amlodipine Besylate (Norvasc) 20 mg DAILY PO ; Start 06/19/19 at 09:00; Stop 06/19/19 at 14:08; Status DC Atorvastatin Calcium (Lipitor) 40 mg QHS PO Last administered on 06/21/19at 21:43; Start 06/19/19 at 21:00 Vitamin D (Vitamin D3) 1,000 unit DAILY PO ; Start 06/19/19 at 09:00; Stop 06/19/19 at 11:23; Status DC Lisinopril (Prinivil) 40 mg DAILY PO Last administered on 06/22/19at 08:17; Start 06/20/19 at 09:00 Insulin Human Lispro (HumaLOG) 10 units TIDWMEALS SQ Last administered on 06/21/19at 17:15; Start 06/19/19 at 17:00 Insulin Glargine (Lantus Syringe) 60 unit QHS SQ Last administered on 06/21/19at 21:49; Start 06/19/19 at 21:00 Propofol 0 ml @ As Directed STK-MED ONCE IV ; Start 06/19/19 at 08:52; Stop 06/19/19 at 08:53; Status DC Dexamethasone Sodium Phosphate (Decadron) 4 mg STK-MED ONCE .ROUTE ; Start 06/19/19 at 08:52; Stop 06/19/19 at 08:53; Status DC Lidocaine HCl (Lidocaine Pf 2% Vial) 5 ml STK-MED ONCE .ROUTE ; Start 06/19/19 at 08:52; Stop 06/19/19 at 08:53; Status DC Phenylephrine HCl (PHENYLEPHRINE in 0.9% NACL PF) 1 mg STK-MED ONCE IV ; Start 06/19/19 at 08:52; Stop 06/19/19 at 08:53; Status DC Rocuronium [place] (Zemuron) 50 mg STK-MED ONCE .ROUTE ; Start 06/19/19 at 08:53; Stop 06/19/19 at 08:53; Status DC Midazolam HCl (Versed) 2 mg STK-MED ONCE .ROUTE ; Start 06/19/19 at 08:53; Stop 06/19/19 at 08:53; Status DC Ketorolac Tromethamine (Toradol 30mg Vial) 30 mg STK-MED ONCE .ROUTE ; Start 06/19/19 at 08:53; Stop 06/19/19 at 08:54; Status DC Insulin Human Lispro (HumaLOG VIAL for OP,RR ONLY) 0-10 units PRN Q1HR PRN SQ PER PROTOCOL Last administered on 06/19/19at 12:52; Start 06/19/19 at 09:00; Stop 06/20/19 at 08:59; Status DC Propofol 20 ml @ As Directed STK-MED ONCE IV ; Start 06/19/19 at 10:34; Stop 06/19/19 at 10:35; Status DC Rocuronium [place] (Zemuron) 50 mg STK-MED ONCE .ROUTE ; Start 06/19/19 at 11:07; Stop 06/19/19 at 11:07; Status DC Fentanyl Citrate (Fentanyl 2ml Vial) 100 mcg STK-MED ONCE .ROUTE ; Start 06/19/19 at 08:53; Stop 06/19/19 at 11:18; Status DC Fentanyl Citrate (Fentanyl 2ml Vial) 100 mcg STK-MED ONCE .ROUTE ; Start 06/19/19 at 10:34; Stop 06/19/19 at 11:18; Status DC Fentanyl Citrate (Fentanyl 2ml Vial) 100 mcg STK-MED ONCE .ROUTE ; Start 06/19/19 at 11:08; Stop 06/19/19 at 11:18; Status DC Vitamin D (Vitamin D3) 1,000 unit DAILY PO Last administered on 06/22/19at 08:06; Start 06/20/19 at 09:00 Esmolol HCl (Brevibloc) 100 mg STK-MED ONCE IVP ; Start 06/19/19 at 11:23; Stop 06/19/19 at 11:23; Status DC Glycopyrrolate (Robinul) 1 mg STK-MED ONCE .ROUTE ; Start 06/19/19 at 11:38; Stop 06/19/19 at 11:38; Status DC Neostigmine Methylsulfate (Neostigmine Methylsulfate) 5 mg STK-MED ONCE .ROUTE ; Start 06/19/19 at 11:38; Stop 06/19/19 at 11:39; Status DC Cefazolin Sodium/ Dextrose 50 ml @ 100 mls/hr Q6H IV Last administered on 06/20/19at 04:12; Start 06/19/19 at 16:15; Stop 06/20/19 at 04:44; Status DC Amlodipine Besylate (Norvasc) 20 mg HS PO Last administered on 06/21/19at 21:43; Start 06/19/19 at 21:00 Chlorpromazine HCl (Thorazine) 50 mg PRN Q6HRS PRN PO HICCUPS Last administered on 06/20/19at 08:45; Start 06/20/19 at 06:30 Warfarin Sodium (Coumadin) 5 mg 1X WARF ONCE PO Last administered on at 16:26; Start 06/20/19 at 16:00; Stop 06/20/19 at 16:01; Status DC Pantoprazole Sodium (Protonix) 40 mg DAILYAC PO Last administered on 06/22/19at 08:06; Start 06/20/19 at 12:30 Sodium Chloride (Saline Mist Nasal) 1 lorenza PRN Q1HR PRN NS NASAL CONGESTION Last administered on 06/21/19at 09:17; Start 06/21/19 at 08:30 Warfarin Sodium (Coumadin) 2 mg 1X WARF ONCE PO Last administered on 06/21/19at 15:35; Start 06/21/19 at 16:00; Stop 06/21/19 at 16:01; Status DC Bisacodyl (Dulcolax Tab) 10 mg DAILY PO Last administered on 06/21/19at 17:03; Start 06/21/19 at 16:30 Magnesium Hydroxide (Milk Of Magnesia) 2,400 mg PRN DAILY PRN PO CONSTIPATION; Start 06/21/19 at 16:15 Active Scripts Active Reported Hydrocodone-Apap 5-325 (Hydrocodone Bit/Acetaminophen) 1 Tab Tablet 1 Tab PO PRN Q6HRS PRN Novolog (Insulin Aspart) 100 Unit/1 Ml Vial 10 Unit SQ TIDBFRMEAL Lantus Solostar (Insulin Glargine,Hum.rec.anlog) 100 Unit/1 Ml Insuln.pen 60 Unit SQ QHS Atorvastatin Calcium 40 Mg Tablet 40 Mg PO DAILY Amlodipine Besylate 10 Mg Tablet 20 Mg PO DAILY Lisinopril 40 Mg Tablet 40 Mg PO DAILY Vitamin D3 (Cholecalciferol (Vitamin D3)) 1,000 Unit Tablet 400 Unit PO DAILY Vitals/I & O Vital Sign - Last 24 Hours 06/21/19 06/21/19 06/21/19 06/21/19 11:53 13:16 15:35 17:03 O2 Delivery Room Air Room Air Room Air Room Air 06/21/19 06/21/19 06/21/1906/21/19 17:55 19:20 20:00 20:16 Temp 99.9 99.2 99.9 99.2 Pulse 90 114 Resp 14 18 18 B/P (MAP) 129/66 (87) 166/79 (108) Pulse Ox 93 98 O2 Delivery Room Air Room Air Room Air 06/21/19 06/21/19 06/21/19 06/22/19 21:15 21:43 23:42 01:20 Temp 99.9 99.9 Pulse 114 107 Resp 18 18 B/P (MAP) 166/79 158/79 (105) Pulse Ox 98 92 O2 Delivery Room Air Room Air O2 Flow Rate 2.0 06/22/19 06/22/19 06/22/19 06/22/19 02:20 03:44 06:25 07:00 Temp 98.6 99.1 98.6 99.1 Pulse 99 81 Resp 18 18 20 18 B/P (MAP) 142/74 (96) 166/72 (103) Pulse Ox 94 93 O2 Delivery Room Air Room Air Room Air 06/22/19 06/22/19 06/22/19 07:30 07:55 08:17 Pulse 96 B/P (MAP) 158/73 O2 Delivery Room Air Room Air Intake and Output 06/21/19 06/21/19 06/22/19 15:00 23:00 07:00 Intake Total 240 ml 240 ml 480 ml Output Total 300 ml Balance 240 ml 240 ml 180 ml LUX AMARAL MD Jun 22, 2019 11:22
[2019-06-22] MEDS ORDERED: METF500T16 PO (12:55)
--- NOTE | 2019-06-22 13:56 | NUR ---
Pharmacy Warfarin Dosing Note S:Pharmacy consulted to assist with anticoagulation therapy started 06/19/19 with target INR: 1.6 - 2.5 O:ARTURMANDIE is a 59 year old M with Right total hip Allergies:No Known Drug Allergies Height: 5 feet, 8 inches Weight: 86.2 kg LABS: Last INR: 1.3 Last HGB: 9.1 Last HCT: 27.6 Last PLT: 142 Ongoing Drug Interactions: Atorvastatin, chlorpromazine, meloxicam A:INR below desired Range. Target Range for this patient is: 1.6 - 2.5 P: Warfarin dose: 7.5 mg will be given today prior to discharge. Give 6 mg daily. Draw INR on 06/25/19, and request attending physician to dose warfarin for a goal INR 1.6 - 2.5 through end of therapy 07/31/19 (6 weeks of therapy). Indication for warfarin is prevention of VTE after major joint surgery. Mahnaz Cuevas RPH, 06/22/19 [id number]
[2019-06-22] MEDS ORDERED: WARF3TAB50 PO (14:34)
[2019-06-22] MEDS ORDERED: OXYC5CAP PO (14:34)
--- NOTE | 2019-06-22 14:36 | SNU/HH DC ---
DISCHARGE ORDERS DISCHARGE INFORMATION: DISCHARGE DATE: Jun 22, 2019 FINAL DIAGNOSIS DJD and total hip arthroplasty CONDITION ON DISCHARGE: Stable CODE STATUS: Code Status: Full PENITENTIARY: SNF STAY <30 DAYS: Yes POST DISCHARGE ORDERS: ACTIVITY ORDERS: Other, see below (weightbearing as tolerated, standard total hip precautions) DIET AFTER DISCHARGE: ADA WOUND/INCISION CARE: Do not change dressing (keep radha dressing intact may remove suction pump one week postoperatively and tape overdressing unless leaking or saturated) FOLLOW-UP: PHYSICIAN FOLLOW-UP: Dr. Hendrix 2 weeks postoperatively ANTICOAGULATION F/U NEEDED: Coumadin dosing per pharmacy anticoagulation clinic TREATMENT/EQUIPMENT ORDERS: Physical Therapy For: Evalulation/Treatment Occupational Therapy For: Evaluation/Treatment DISCHARGE MEDICATIONS: Home Meds Reported Medications Metformin Hcl (METFORMIN HCL) 500 Mg Tablet, 500 MG PO BIDWMEALS for ANTI- DIABETIC, TAB 0 Refills 06/22/19 Hydrocodone Bit/Acetaminophen (HYDROCODONE-APAP 5-325 ) 1 Tab Tablet, 1 TAB PO PRN Q6HRS PRN for PAIN, TAB 0 Refills 06/04/19 Insulin Aspart (NOVOLOG) 100 Unit/1 Ml Vial, 10 UNIT SQ TIDBFRMEAL for SLIDING SCALE INSULIN COVERAGE, VIAL 06/04/19 Insulin Glargine,Hum.rec.anlog (LANTUS SOLOSTAR) 100 Unit/1 Ml Insuln.pen, 60 UNIT SQ QHS for CONTROL DIABETES, SYR 06/04/19 Atorvastatin Calcium (ATORVASTATIN CALCIUM) 40 Mg Tablet, 40 MG PO DAILY for FOR CHOLESTEROL, #30 TAB 0 Refills 06/04/19 Amlodipine Besylate (AMLODIPINE BESYLATE) 10 Mg Tablet, 20 MG PO DAILY for CONTROL BP, TAB 06/04/19 Lisinopril (LISINOPRIL) 40 Mg Tablet, 40 MG PO DAILY for FOR HYPERTENSION, #30 TAB 0 Refills 06/04/19 Cholecalciferol (Vitamin D3) (VITAMIN D3) 1,000 Unit Tablet, 400 UNIT PO DAILY for SUPPLEMENT, TAB 06/04/19 LYNNE HENDRIX MD Jun 22, 2019 14:36
--- NOTE | 2019-06-22 14:45 | PDOC4 ---
Operative Note Operative Note Date of surgery: 06/19/2019 Preoperative diagnosis: Degenerative joint disease left hip Postoperative diagnosis: Same Operative procedure: Left total hip arthroplasty Surgeon: Simeon Assist: Elver Anesthesia: Gen. Estimated blood loss: 150 mL Specimens: Femoral head to pathology Complications: None Operative indications: Please see my clinic and preoperative history and physical for details operative indications Operative text: Patient was identified procedure verified patient placed in the supine position on operating table. After adequate amounts of general anesthesia were administered the patient was placed in the decubitus position left side up using the Stulberg hip positioner and all bony prominences were well-padded. The left hip was then prepped and draped in standard sterile fashion. After timeout was performed patient procedure identified and verified a curvilinear incision was made over the greater trochanter dissection carried out down to the fascia and iliotibial band and gluteal fascia were divided in line with their fibers a Charnley retractor was placed external rotators were divided at their insertion hip capsule was split in a T fashion and the hip was dislocated femoral neck cut was made with femoral cutting guide and successive size reaming carried up to a size 51 with a size 52 hemispherical 3-hole cluster hole [employer] sticktight coated acetabular liner which was impacted in proper version a 36 mm polyethylene was impacted following placement of a single superior screw with excellent fixation. Femur was then reamed and broached and a size 12 high offset Synergy trial was carried out with a +0 36 mm femoral head which gave excellent reproduction of his offset leg length and excellent stability. Trial broach was removed and a size 12 high offset Synergy component was impacted a +0 Oxinium femoral head was impacted in place to engage the Childs taper hip was reduced and found to have equivalent alignment stability range of motion. Thorough irrigation carried out normal saline solution hip capsule was repaired with #5 Ethibond suture external rotators were reattached transosseously with #5 Ethibond as well Hemovac drain and pain catheter were placed pain catheter mixt ure was injected throughout the joint capsule closure of the fascia and iliotibial band carried out with interrupted Ethibond suture and reinforced with a #1 strata fix EDS suture subcutaneous closure with buried Vicryl suture skin closure with subcuticular Monocryl radha dressing was applied patient was returned recovery room in stable condition having tolerated procedure well. Skip lemos was present for the procedure and assisted in the prepping draping retraction and skin closure LYNNE PRITCHARD MD Jun 22, 2019 14:45
[2019-06-22] MEDS ORDERED: WARFARIN 7.5 MG TABLET. PO ONE (16:00)
[2019-06-22 19:20] VITALS: BP 159/65
[2019-06-22] MEDS: ATORVASTATIN CALCIUM 40 MG TABLET. PO SCH (21:41)
[2019-06-22] MEDS: amLODIPine BESYLATE 10 MG TABLET PO SCH (21:43)
[2019-06-22] MEDS: INSULIN GLARGINE SYRINGE. SQ SCH (21:54)
[2019-06-22 23:20] VITALS: BP 180/88
[2019-06-23] MEDS: ACETAMINOPHEN 500 MG TABLET PO SCH ×2 (01:56→08:46)
[2019-06-23] MEDS: oxyCODONE IR 5 MG TABLET PO PRN ×2 (01:56→06:05)
[2019-06-23 03:25] VITALS: BP 159/74
[2019-06-23] MEDS: traMADol 50 MG TABLET PO SCH ×3 (05:54→12:50)
[2019-06-23] MEDS: PANTOPRAZOLE 40 MG TABLET.DR. PO SCH (06:04)
[2019-06-23 06:07] LABS: PROTHROMBIN TIME PATIENT 16.4 SEC (11.7-14.0)
[2019-06-23 07:00] VITALS: BP 172/76
[2019-06-23] MEDS: INSULIN LISPRO 300 UNITS/3 ML VIAL. SQ SCH ×4 (08:00→13:00)
[2019-06-23] MEDS: MULTIVITAMIN with MINERAL TABLET. PO SCH (08:44)
[2019-06-23 08:45] VITALS: BP 159/74
[2019-06-23] MEDS: FERROUS SULFATE 325 MG TABLET. PO SCH (08:45)
[2019-06-23] MEDS: LISINOPRIL 20 MG TABLET PO SCH (08:45)
[2019-06-23] MEDS: MELOXICAM 7.5 MG TABLET PO SCH (08:46)
[2019-06-23] MEDS: CHOLECALCIFEROL (VITAMIN D3) 1,000 UNIT TABLET PO SCH (08:46)
[2019-06-23] MEDS: SENNOSIDES/DOCUSATE 8.6/50MG TABLET. PO SCH (09:00)
--- NOTE | 2019-06-23 10:58 | PDOC ---
PROGRESS NOTES Subjective Subjective No new complaints. He continues with low back and left hip pain. Objective Objective Vital Signs Date Time Temp Pulse Resp B/P (MAP) Pulse Ox O2 Delivery O2 Flow Rate FiO2 06/23/19 08:45 83 159/74 06/23/19 08:00 Room Air 2.0 06/23/19 07:00 98.0 18 94 98.0 Intake and Output 06/23/19 07:00 Intake Total 420 ml Balance 420 ml Intake Oral 420 ml # Voids 2 Physical Exam Physical Exam He is alert,sitting in bedside chair and seems to be in no acute distress and he is participating with physical and occupational therapy and even worked on stairs this AM. Plan Plan of Care Agree with plans for transfer to [facility] for a short stay. Comment Review of Relevant I have reviewed the following items paris (where applicable) has been applied. Labs Laboratory Tests Test 06/21/19 11:12 06/21/19 16:12 06/21/19 21:16 06/22/19 05:20 Glucose (Fingerstick) 95 mg/dL (70-99) 190 mg/dL (70-99) 176 mg/dL (70-99) White Blood Count 7.7 x10^3/uL (4.0-11.0) Red Blood Count 3.46 x10^6/uL (4.30-5.70) Hemoglobin 9.1 g/dL (13.0-17.5) Hematocrit 27.6 % (39.0-53.0) Mean Corpuscular Volume 80 fL (79-100) Mean Corpuscular Hemoglobin 26 pg (25-35) Mean Corpuscular Hemoglobin Concent 33 g/dL (31-37) Red Cell Distribution Width 14.8 % (11.5-14.5) Platelet Count 142 x10^3/uL (140-400) Neutrophils (%) (Auto) 55 % (31-73) Lymphocytes (%) (Auto) 37 % (24-48) Monocytes (%) (Auto) 7 % (0-9) Eosinophils (%) (Auto) 0 % (0-3) Basophils (%) (Auto) 0 % (0-3) Neutrophils # (Auto) 4.2 x10^3/uL (1.8-7.7) Lymphocytes # (Auto) 2.9 x10^3/uL (1.0-4.8) Monocytes # (Auto) 0.6 x10^3/uL (0.0-1.1) Eosinophils # (Auto) 0.0 x10^3/uL (0.0-0.7) Basophils # (Auto) 0.0 x10^3/uL (0.0-0.2) Prothrombin Time 16.2 SEC (11.7-14.0) Prothromb Time International Ratio 1.3 (0.8-1.1) Sodium Level 143 mmol/L (136-145) Potassium Level 3.5 mmol/L (3.5-5.1) Chloride Level 108 mmol/L (98-107) Carbon Dioxide Level 28 mmol/L (21-32) Anion Gap 7 (6-14) Blood Urea Nitrogen 23 mg/dL (8-26) Creatinine 1.2 mg/dL (0.7-1.3) Estimated GFR (Cockcroft-Gault) 75.2 Glucose Level 115 mg/dL (70-99) Calcium Level 8.5 mg/dL (8.5-10.1) Test 06/22/19 07:33 06/22/19 11:39 06/22/19 16:23 06/22/19 21:39 Glucose (Fingerstick) 102 mg/dL (70-99) 210 mg/dL (70-99) 107 mg/dL (70-99) 191 mg/dL (70-99) Test 06/23/19 05:25 06/23/19 08:12 Prothrombin Time 16.4 SEC (11.7-14.0) Prothromb Time International Ratio 1.4 (0.8-1.1) Glucose (Fingerstick) 135 mg/dL (70-99) Laboratory Tests Test 06/22/19 11:39 06/22/19 16:23 06/22/19 21:39 06/23/19 05:25 Glucose (Fingerstick) 210 mg/dL (70-99) 107 mg/dL (70-99) 191 mg/dL (70-99) Prothrombin Time 16.4 SEC (11.7-14.0) Prothromb Time International Ratio 1.4 (0.8-1.1) Test 06/23/19 08:12 Glucose (Fingerstick) 135 mg/dL (70-99) Medications Current Medications Morphine Sulfate 5 mg/Ketorolac Tromethamine 30 mg/Ropivacaine 60 ml/Epinephrine HCl 0.5 mg/Sodium Chloride 100 ml @ 100 mls/hr 1X ONCE INT ART Last administered on 06/19/19at 11:03; Start 06/19/19 at 06:00; Stop 06/19/19 at 06:59; Status DC Meloxicam (Mobic) 15 mg 1X PREOP PRN PO PRIOR TO PROCEDURE; Start 06/19/19 at 06:00; Stop 06/19/19 at 18:00; Status DC Acetaminophen (Tylenol) 1,000 mg 1X PREOP PRN PO PRIOR TO PROCEDURE Last administered on 06/19/19at 09:06; Start 06/19/19 at 06:00; Stop 06/19/19 at 13:59; Status DC Cefazolin Sodium/ Dextrose 50 ml @ 100 mls/hr 1X PREOP PRN IV PRIOR TO PROCEDURE; Start 06/19/19 at 06:00; Stop 06/19/19 at 18:00; Status DC Tranexamic Acid 1000 mg/Sodium Chloride 60 ml @ 60 mls/hr 1X PERIOP ONCE INJ Last administered on 06/19/19at 10:30; Start 06/19/19 at 06:00; Stop 06/19/19 at 06:59; Status DC Tranexamic Acid 1000 mg/Sodium Chloride 60 ml @ 60 mls/hr 1X PERIOP ONCE INJ Last administered on 06/19/19at 11:40; Start 06/19/19 at 08:00; Stop 06/19/19 at 08:59; Status DC Ondansetron HCl (Zofran) 4 mg PRN Q6HRS PRN IV NAUSEA/VOMITING; Start 06/19/19 at 06:45; Stop 06/20/19 at 06:44; Status DC Fentanyl Citrate (Fentanyl 2ml Vial) 25 mcg PRN Q5MIN PRN IV MILD PAIN 1-3; Start 06/19/19 at 06:45; Stop 06/20/19 at 06:44; Status DC Fentanyl Citrate (Fentanyl 2ml Vial) 50 mcg PRN Q5MIN PRN IV MODERATE TO SEVERE PAIN; Start 06/19/19 at 06:45; Stop 06/20/19 at 06:44; Status DC Morphine Sulfate (Morphine Sulfate) 1 mg PRN Q10MIN PRN IV SEVERE PAIN 7-10; Start 06/19/19 at 06:45; Stop 06/20/19 at 06:44; Status DC Ringer's Solution 1,000 ml @ 30 mls/hr Q24H IV Last administered on 06/19/19at 06:34; Start 06/19/19 at 06:34; Stop 06/19/19 at 18:33; Status DC Lidocaine HCl (Xylocaine-Mpf 1% 2ml Vial) 2 ml 1X PRN PRN ID IV START; Start 06/19/19 at 06:45; Stop 06/20/19 at 06:44; Status DC Hydromorphone HCl (Dilaudid) 0.5 mg PRN Q10MIN PRN IV SEV PAIN, Second choice Last administered on 06/19/19at 13:31; Start 06/19/19 at 06:45; Stop 06/20/19 at 06:44; Status DC Prochlorperazine Edisylate (Compazine) 5 mg PACU PRN PRN IV NAUSEA, MRX1; Start 06/19/19 at 06:45; Stop 06/20/19 at 06:44; Status DC Morphine Sulfate (Morphine Sulfate) 2 mg PRN Q1HR PRN IV PAIN; Start 06/19/19 at 08:45 Fentanyl Citrate (Fentanyl 2ml Vial) 25 mcg PRN Q1HR PRN IV PAIN, 2nd CHOICE; Start 06/19/19 at 08:45 Diphenhydramine HCl (Benadryl) 25 mg PRN Q6HRS PRN IV ITCHING; Start 06/19/19 at 08:45 Warfarin Sodium (Coumadin) 7.5 mg 1X ONCE PO Last administered on 06/19/19at 19:17; Start 06/19/19 at 16:00; Stop 06/19/19 at 16:01; Status DC Warfarin Sodium (Coumadin Per Pharmacy) 1 each PRN DAILY PRN MC SEE COMMENTS Last administered on 06/22/19at 13:53; Start 06/19/19 at 08:45 Multivitamins (Thera M Plus) 1 tab DAILY PO Last administered on 06/23/19at 08:44; Start 06/20/19 at 09:00 Senna/Docusate Sodium (Senna Plus) 1 tab DAILY PO Last administered on 08/22/18at 08:06; Start 06/20/19 at 09:00 Ferrous Sulfate (Feosol) 325 mg BIDWMEALS PO Last administered on 06/23/19at 08:45; Start 06/19/19 at 17:00 Sodium Chloride 1,000 ml @ 40 mls/hr Q24H IV Last administered on 06/19/19at 19:17; Start 06/19/19 at 08:37; Stop 06/20/19 at 08:44; Status DC Prochlorperazine Maleate (Compazine) 10 mg PRN Q4HRS PRN PO Nausea/vomiting, 2nd choice Last administered on 06/20/19at 02:12; Start 06/19/19 at 08:45 Magnesium Hydroxide (Milk Of Magnesia) 2,400 mg 1X PRN PRN PO CONSTIPATION; Start 06/20/19 at 06:00; Stop 06/21/19 at 05:59; Status DC Bisacodyl (Dulcolax Supp) 10 mg 1X PRN PRN LA CONSTIPATION; Start 06/20/19 at 16:00; Stop 06/21/19 at 15:59; Status DC Zolpidem Tartrate (Ambien) 5 mg PRN QHS PRN PO INSOMNIA, MAY REPEAT IN 1HR Last administered on 06/19/19at 23:51; Start 06/19/19 at 08:45 Calcium Carbonate/ Glycine (Tums) 500 mg PRN QID PRN PO INDIGESTION Last administered on 06/20/19at 12:11; Start 06/19/19 at 08:45 Ketorolac Tromethamine 30 mg/Bupivacaine HCl 20 ml/ Epinephrine HCl 0.5 mg/ Miscellaneous 43 ml @ 258 mls/hr Q12H INT ART Last administered on 06/20/19at 05:30; Start 06/19/19 at 18:00; Stop 06/20/19 at 06:09; Status DC Sodium Chloride (Normal Saline Flush) 10 ml QSHIFT PRN IV AFTER MEDS AND BLOOD DRAWS; Start 06/19/19 at 08:45 Acetaminophen (Tylenol) 1,000 mg Q6H PO Last administered on 06/23/19at 08:46; Start 06/20/19 at 09:00 Meloxicam (Mobic) 15 mg DAILY PO Last administered on 06/23/19at 08:46; Start 06/20/19 at 09:00 Tramadol HCl (Ultram) 50 mg Q6H PO Last administered on 06/22/19at 00:16; Start 06/20/19 at 06:00 Gabapentin (Neurontin) 100 mg Q8HRS PO ; Start 06/20/19 at 06:00; Stop 06/19/19 at 11:24; Status DC Ondansetron HCl (Zofran) 4 mg Q6HRS IV Last administered on 06/20/19at 05:54; Start 06/19/19 at 12:00; Stop 06/20/19 at 06:01; Status DC Ondansetron HCl (Zofran Odt) 4 mg Q6HRS PO ; Start 06/19/19 at 12:00; Stop 06/20/19 at 06:01; Status DC Ondansetron HCl (Zofran) 4 mg PRN Q6HRS PRN IV Nausea/vomiting, 1st choice; Start 06/20/19 at 12:00 Ondansetron HCl (Zofran Odt) 4 mg PRN Q6HRS PRN PO Nausea/vomiting, 1st choice; Start 06/20/19 at 12:00 Oxycodone HCl (Roxicodone) 5 mg PRN Q4HRS PRN PO Pain score 4-6 Last administered on 06/23/19at 06:05; Start 06/19/19 at 08:45 Insulin Human Lispro (HumaLOG) 0-7 UNITS TIDWMEALS SQ Last administered on 06/21/19at 17:09; Start 06/19/19 at 17:00 Dextrose (Dextrose 50%-Water Syringe) 12.5 gm PRN Q15MIN PRN IV SEE COMMENTS; Start 06/19/19 at 08:45 Cefazolin Sodium/ Dextrose 50 ml @ 100 mls/hr Q6H IV Last administered on 06/19/19at 10:15; Start 06/19/19 at 08:45; Stop 06/19/19 at 13:53; Status DC Amlodipine Besylate (Norvasc) 20 mg DAILY PO ; Start 06/19/19 at 09:00; Stop 06/19/19 at 14:08; Status DC Atorvastatin Calcium (Lipitor) 40 mg QHS PO Last administered on 06/22/19at 21:41; Start 06/19/19 at 21:00 Vitamin D (Vitamin D3) 1,000 unit DAILY PO ; Start 06/19/19 at 09:00; Stop 06/19/19 at 11:23; Status DC Lisinopril (Prinivil) 40 mg DAILY PO Last administered on 06/23/19at 08:45; Start 06/20/19 at 09:00 Insulin Human Lispro (HumaLOG) 10 units TIDWMEALS SQ Last administered on 06/23/19at 08:58; Start 06/19/19 at 17:00 Insulin Glargine (Lantus Syringe) 60 unit QHS SQ Last administered on 06/22/19at 21:54; Start 06/19/19 at 21:00 Propofol 0 ml @ As Directed STK-MED ONCE IV ; Start 06/19/19 at 08:52; Stop 06/19/19 at 08:53; Status DC Dexamethasone Sodium Phosphate (Decadron) 4 mg STK-MED ONCE .ROUTE ; Start 06/19/19 at 08:52; Stop 06/19/19 at 08:53; Status DC Lidocaine HCl (Lidocaine Pf 2% Vial) 5 ml STK-MED ONCE .ROUTE ; Start 06/19/19 at 08:52; Stop 06/19/19 at 08:53; Status DC Phenylephrine HCl (PHENYLEPHRINE in 0.9% NACL PF) 1 mg STK-MED ONCE IV ; Start 06/19/19 at 08:52; Stop 06/19/19 at 08:53; Status DC Rocuronium [place] (Zemuron) 50 mg STK-MED ONCE .ROUTE ; Start 06/19/19 at 08:53; Stop 06/19/19 at 08:53; Status DC Midazolam HCl (Versed) 2 mg STK-MED ONCE .ROUTE ; Start 06/19/19 at 08:53; Stop 06/19/19 at 08:53; Status DC Ketorolac Tromethamine (Toradol 30mg Vial) 30 mg STK-MED ONCE .ROUTE ; Start 06/19/19 at 08:53; Stop 06/19/19 at 08:54; Status DC Insulin Human Lispro (HumaLOG VIAL for OP,RR ONLY) 0-10 units PRN Q1HR PRN SQ PER PROTOCOL Last administered on 06/19/19at 12:52; Start 06/19/19 at 09:00; Stop 06/20/19 at 08:59; Status DC Propofol 20 ml @ As Directed STK-MED ONCE IV ; Start 06/19/19 at 10:34; Stop 06/19/19 at 10:35; Status DC Rocuronium [place] (Zemuron) 50 mg STK-MED ONCE .ROUTE ; Start 06/19/19 at 11:07; Stop 06/19/19 at 11:07; Status DC Fentanyl Citrate (Fentanyl 2ml Vial) 100 mcg STK-MED ONCE .ROUTE ; Start 06/19/19 at 08:53; Stop 06/19/19 at 11:18; Status DC Fentanyl Citrate (Fentanyl 2ml Vial) 100 mcg STK-MED ONCE .ROUTE ; Start 06/19/19 at 10:34; Stop 06/19/19 at 11:18; Status DC Fentanyl Citrate (Fentanyl 2ml Vial) 100 mcg STK-MED ONCE .ROUTE ; Start 06/19/19 at 11:08; Stop 06/19/19 at 11:18; Status DC Vitamin D (Vitamin D3) 1,000 unit DAILY PO Last administered on 06/23/19at 08:46; Start 06/20/19 at 09:00 Esmolol HCl (Brevibloc) 100 mg STK-MED ONCE IVP ; Start 06/19/19 at 11:23; Stop 06/19/19 at 11:23; Status DC Glycopyrrolate (Robinul) 1 mg STK-MED ONCE .ROUTE ; Start 06/19/19 at 11:38; Stop 06/19/19 at 11:38; Status DC Neostigmine Methylsulfate (Neostigmine Methylsulfate) 5 mg STK-MED ONCE .ROUTE ; Start 06/19/19 at 11:38; Stop 06/19/19 at 11:39; Status DC Cefazolin Sodium/ Dextrose 50 ml @ 100 mls/hr Q6H IV Last administered on 06/20/19at 04:12; Start 06/19/19 at 16:15; Stop 06/20/19 at 04:44; Status DC Amlodipine Besylate (Norvasc) 20 mg HS PO Last administered on 06/22/19at 21:43; Start 06/19/19 at 21:00 Chlorpromazine HCl (Thorazine) 50 mg PRN Q6HRS PRN PO HICCUPS Last administered on 06/20/19at 08:45; Start 06/20/19 at 06:30 Warfarin Sodium (Coumadin) 5 mg 1X WARF ONCE PO Last administered on 06/20/19at 16:26; Start 06/20/19 at 16:00; Stop 06/20/19 at 16:01; Status DC Pantoprazole Sodium (Protonix) 40 mg DAILYAC PO Last administered on 06/23/19at 06:04; Start 06/20/19 at 12:30 Sodium Chloride (Saline Mist Nasal) 1 lorenza PRN Q1HR PRN NS NASAL CONGESTION Last administered on 06/21/19at 09:17; Start 06/21/19 at 08:30 Warfarin Sodium (Coumadin) 2 mg 1X WARF ONCE PO Last administered on 06/21/19at 15:35; Start 06/21/19 at 16:00; Stop 06/21/19 at 16:01; Status DC Bisacodyl (Dulcolax Tab) 10 mg DAILY PO Last administered on 06/22/19at 15:17; Start 06/21/19 at 16:30 Magnesium Hydroxide (Milk Of Magnesia) 2,400 mg PRN DAILY PRN PO CONSTIPATION; Start 06/21/19 at 16:15 Warfarin Sodium (Coumadin) 7.5 mg 1X ONCE PO Last administered on 06/22/19at 16:19; Start 06/22/19 at 16:00; Stop 06/22/19 at 16:01; Status DC Warfarin Sodium (Coumadin) 6 mg DAILY16 PO ; Start 06/23/19 at 16:00 Active Scripts Active Reported Metformin Hcl 500 Mg Tablet 500 Mg PO BIDWMEALS Hydrocodone-Apap 5-325 (Hydrocodone Bit/Acetaminophen) 1 Tab Tablet 1 Tab PO PRN Q6HRS PRN Novolog (Insulin Aspart) 100 Unit/1 Ml Vial 10 Unit SQ TIDBFRMEAL Lantus Solostar (Insulin Glargine,Hum.rec.anlog) 100 Unit/1 Ml Insuln.pen 60 Unit SQ QHS Atorvastatin Calcium 40 Mg Tablet 40 Mg PO DAILY Amlodipine Besylate 10 Mg Tablet 20 Mg PO DAILY Lisinopril 40 Mg Tablet 40 Mg PO DAILY Vitamin D3 (Cholecalciferol (Vitamin D3)) 1,000 Unit Tablet 400 Unit PO DAILY Vitals/I & O Vital Sign - Last 24 Hours 06/22/19 06/22/19 06/22/19 06/22/19 11:52 13:00 16:20 17:30 O2 Delivery Room Air Room Air Room Air Room Air 06/22/19 06/22/19 06/22/19 06/22/19 19:20 20:00 21:42 21:43 Temp 98.6 98.6 Pulse 94 94 Resp 17 20 B/P (MAP) 159/65 (96) 159/65 Pulse Ox 97 O2 Delivery Room Air Room Air 06/22/19 06/22/19 06/23/19 06/23/19 22:45 23:20 01:56 03:00 Temp 99.1 99.1 Pulse 109 Resp 17 18 B/P (MAP) 180/88 (118) Pulse Ox 95 95 95 95 O2 Delivery Room Air Room Air Room Air Room Air 06/23/19 06/23/19 06/23/19 06/23/19 03:25 06:05 07:00 08:00 Temp 98.5 98.0 98.5 98.0 Pulse 83 87 Resp 16 18 B/P (MAP) 159/74 (102) 172/76 (108) Pulse Ox 92 92 94 O2 Delivery Room Air Room Air Room Air Room Air O2 Flow Rate 2.0 2.0 06/23/19 08:45 Pulse 83 B/P (MAP) 159/74 Intake and Output 06/22/19 06/22/19 06/23/19 15:00 23:00 07:00 Intake Total 120 ml 300 ml Balance 120 ml 300 ml LUX AMARAL MD Jun 23, 2019 10:58
--- NOTE | 2019-06-23 12:55 | NUR ---
Pharmacy Warfarin Dosing Note S:Pharmacy consulted to assist with anticoagulation therapy started 06/19/19 with target INR: 1.6 - 2.5 O:ARTURMANDIE is a 59 year old M with DANA Right total hip LABS: Last INR: 1.4 Last HGB: 9.1 Last HCT: 27.6 Last PLT: 142 Last dose of 7.5 mg given on 06/22/19 at 1619 Previous Regimen: Vitamin K given: N Drug Interaction Changes: Same Interacting Drug Ongoing Drug Interactions: Atorvastatin, chlorpromazine, meloxicam A:INR of 1.4 is below desired range. Target range for this patient is: 1.6 - 2.5 P: Warfarin dose: 6 mg Today at 1600 Bridge Therapy: None Next INR due 06/24/19 Pharmacy anticoagulation service will continue to follow. [facility], 06/23/19 1375
--- NOTE | 2019-06-23 14:56 | NUR ---
Patient was transferred to [facility] by transport van. Report given to RN there. Pt has discharge paperwork and original sent to facility with transport personnel. Rx for roxicodone sent. IV site was discontinued last PM. Pt states he understands discharge teaching and medications.
[2019-06-23] MEDS ORDERED: WARFARIN 3 MG TABLET. PO SCH (16:00)
--- NOTE | 2019-06-26 07:59 | DS ---
DATE OF DISCHARGE: 06/23/2019 ORTHOPEDIC DISCHARGE SUMMARY PRINCIPAL DIAGNOSIS: Degenerative joint disease, left hip. OPERATIVE PROCEDURE: Left total hip arthroplasty. DISPOSITION: To a [facility] facility. DISCHARGE MEDICATIONS: Include Coumadin per anticoagulation clinic, oxycodone 5 mg p.o. q. 4 hours p.r.n. and resume atorvastatin, amlodipine, lisinopril, metformin, insulin, aspartame, and glargine as well as vitamin D3. DISCHARGE INSTRUCTIONS: Follow up with Dr. Hendrix in 2 weeks. Maintain LYNN dressing. Weightbearing as tolerated. Standard total hip precautions. Report any drainage, redness, fever, chills, uncontrolled pain or other problems. BRIEF DESCRIPTION OF HOSPITAL COURSE: The patient underwent uncomplicated total hip arthroplasty, remained medically stable, did well with physical therapy, but was felt due to his living situation that he needed a [facility] and was delayed one day on postoperative day #3 to obtain insurance approval for this discharge and was discharged on 06/23 in stable condition. LYNNE HENDRIX MD DR: PATRICK/ayesha JOB#: [id number] / [id number]
== END 2019-06-23 13:30 | DRG 470 ==
LOC: OPSVCIP 08:07 → 4 SOUTHEST 13:36 → 4 NORTH 06-21 19:18
PROVIDERS: ADMIT Orthopaedic Surgery; ATTEND Orthopaedic Surgery
PROC: 0SRB06Z Replacement of Left Hip Joint with Oxidized Zirconium on Polyethylene Synthetic Substitute, Open Approach (ICD-10-PCS; principal; 2019-06-19 10:30)
DX: M16.12 Unilateral primary osteoarthritis, left hip (principal); E11.9 Type 2 diabetes mellitus without complications; E78.5 Hyperlipidemia, unspecified; I10 Essential (primary) hypertension; M47.816 Spondylosis without myelopathy or radiculopathy, lumbar region; M51.36 Other intervertebral disc degeneration, lumbar region; K59.00 Constipation, unspecified; G89.29 Other chronic pain; D64.9 Anemia, unspecified; M17.0 Bilateral primary osteoarthritis of knee
CPT/HCPCS: 36415; 73502; 80048; 82962; 85014; 85018; 85025; 85610; 85730; 86850; 86900; 86901; 88304; 88311; A7015; C1713; J0171; J0696; J1100; J1170; J1815; J1885; J2001; J2250; J2270; J2370; J2405; J2704; J2710; J2795; J3010; J3490; J7030; J7120; Q0161; Q0164; 97110; 97116; 97150; 97530; 97535; G0378

== ENCOUNTER → 2019-07-02 | Outpatient (CLI) | payer OTHER ==
[2019-06-23 08:45] VITALS: BP 159/74
[~2019-07-02] MED LIST changes: -ACETAMINOPHEN 500 MG TABLET PO PRN; -IV RINGERS,LACTATED 1000ML 1,000 ML IV SCH; -LIDOCAINE 1% PF 2 ML VIAL. ID PRN; -MELOXICAM 7.5 MG TABLET PO PRN; +METF500T16 PO; -MORPHINE SULFATE 2 MG/ML VIAL. IV PRN; -MORPHINE SULFATE 5 MG, KETOROLAC 30MG VIAL 30 MG, ROPIVacaine 0.5% PF 60 ML, EPINEPHrin... INT ART ONE; -ONDANSETRON PF 4 MG/2 ML VIAL. IV PRN; +OXYC5CAP PO; -PROCHLORPERAZINE 10 MG/2 ML VIAL. IV PRN; -TRANEXAMIC ACID 1,000 MG in IV NS 50ML -- 1ST BAG INJ ONE; -TRANEXAMIC ACID 1,000 MG in IV NS 50ML -- 2ND BAG INJ ONE; +WARF3TAB50 PO; -fentaNYL PF VIAL 100 MCG/2 ML VIAL IV PRN
[2019-07-02 11:58] LABS: BASO % 0 % (0-3); EOS # 0.1 x10^3/uL (0.0-0.7); EOS % 1 % (0-3); HEMATOCRIT 30.8 % (39.0-53.0); HEMOGLOBIN 10.2 g/dL (13.0-17.5); LYMPH # 2.9 x10^3/uL (1.0-4.8); LYMPH % 34 % (24-48); MEAN CORPUSCULAR HEMOGLOBIN 26 pg (25-35); MEAN CORPUSCULAR HGB CONC 33 g/dL (31-37); MEAN CORPUSCULAR VOLUME 79 fL (79-100); MONO # 0.5 x10^3/uL (0.0-1.1); MONO % 5 % (0-9); NEUT # 5.2 x10^3/uL (1.8-7.7); NEUT % 60 % (31-73); PLATELET COUNT 442 x10^3/uL (140-400); RED BLOOD COUNT 3.92 x10^6/uL (4.30-5.70); WHITE BLOOD COUNT 8.8 x10^3/uL (4.0-11.0)
[2019-07-02 12:11] LABS: PROTHROMBIN TIME PATIENT 17.9 SEC (11.7-14.0)
== END | disposition home or self-care (01) ==
LOC: LAB 11:28
PROVIDERS: ATTEND Physician Assistant
DX: Z98.890 Other specified postprocedural states (principal)
CPT/HCPCS: 36415; 85025; 85610